=== PATIENT | female | born 1940 | race Caucasian/White ===

== ENCOUNTER 2018-06-08 18:09 | Inpatient (IN) | payer OTHER, MEDICARE ==
[~2018-06-08] VITALS: Ht 162.6 cm; Wt 96.4 kg
[~2018-06-08 18:09] MED LIST: ACETAMINOPHEN/H1 TA6 PO; COZAAR100 MG PO; FER300 PO; GABAPENTIN100 M2 PO; GLU10XL PO; LEVOTHYROXIN0.125 M2 PO; NADOLOL40 MG PO; NEOUD TOP; NEURONTIN400 MG PO; PRA20 PO; PRAVACHOL20 MG PO; THERAGRAN-M1 TA4 PO; TRAMADOL HCL50 MG PO; VITC PO
--- NOTE | 2018-06-08 18:46 | NUR ---
BROUGHT IN BY [facility],FOR GENERALIZED WEAKNESS,SKIN RASH TO MOST OF HER BODY,INCONTENENT OF STOOL AND URINE,CLEANED AND CLOTHES FULL OF STOOL PT STATED TO THROW IT, SEVERE CELLULITIS TO BILATERAL LOWER LEGS SINCE ONE YEAR PER WHO CHANGE HER DRESSINGS EVERY 2 DAYS,DRESSINGS REMOVED , STATED PUTS SOME LOTION TO HER OOZING CELLUILITIS, ALSO STATED HAS BEEN ON CHAIR FOR THE LAST 4 DAYS, HAS OPEN SORES TO BUTTOCKS ,AROUND ANAL AREA, SEEN BY DR CHAVARRIA TO CLEAN LEGS AND LEAVE OPEN TO AIR DRYING
--- NOTE | 2018-06-08 19:14 | NUR ---
RECIEVED REPORT FROM ARMANDO FRYE FOR CONTINUED CARE OF PATIENT.
--- NOTE | 2018-06-08 19:30 | NUR ---
SPOKE WITH PATIENT ABOUT HOW LONG SHE HAS BEEN IMMOBILE. PATIENT STATES SHE SAT IN HER CHAIR AND WAS UNABLE TO MOVE FOR 4 DAYS. IS THE PRIMARY CAREGIVER AT HOME WITH NO ASSISTANCE. PATIENT COULDN'T REMEMBER LAST TIME SHE WENT TO HER MD BUT STATES THEY NEVER LOOK AT HER FEET. PATIENT IS DIABETIC. PATIENT HAS RAISED RASH ALL OVER BODY- FROM NECK, CHEST AND ABDOMEN. PATIENT IS UNSURE OF ANY NEW MEDICATION OR FOOD SHE HAS TRIED THAT COULD POSSIBLY CONTRIBUTE TO AN ALLERGIC REACTION. PATIENT DENIES SOB. PATIENT IS AAO BUT APPEARS TO HAVE MILD CONFUSION AT TIMES WHEN ASKED DIRECT QUESTIONS. PATIENT WAS COVERED IN STOOL AND URINE UPON ARRIVAL AND IS NOW CLEAN AND DRY. WILL CONTINUE TO MONITOR.
[2018-06-08 19:51] LABS: PLATELET COUNT 223 x10^3mcL (130-400)
[2018-06-08 19:56] LABS: ALKALINE PHOSPHATASE 100 U/L (46-116); ALT/SGPT 20 U/L (14-59); AST/SGOT 33 U/L (15-37); BILIRUBIN TOTAL 0.5 mg/dL (0.20-1.00); CALCIUM 9.2 mg/dL (8.5-10.1); CARBON DIOXIDE 11.3 mmol/L (21-32); CHLORIDE SERUM 94 mmol/L (98-107); GLUCOSE SERUM 289 mg/dL (74-106); SODIUM SERUM 127 mmol/L (136-145)
[2018-06-08 19:58] LABS: RED CELL DISTRIBUTION WIDTH 14.7 % (11.5-14.5)
[2018-06-08 20:01] LABS: ALBUMIN 2.7 g/dL (3.4-5.0)
--- NOTE | 2018-06-08 20:01 | NUR ---
ATTEMPTED BY 3 PEOPLE TO START IVS ON PATIENT. UNSUCCESSFUL. MD AWARE OF STATUS. WITNESSED VERBAL CONSENT TO START CENTRAL LINE DONE BY DR. CHAVARRIA. PATIENT TRANSFERED TO TRAUMA 1 ROOM FOR FURTHER CARE.
[2018-06-08 20:04] LABS: CREATININE SERUM 4.1 mg/dL (0.6-1.0); POTASSIUM SERUM 5.6 mmol/L (3.5-5.1)
[2018-06-08 20:19] LABS: BAND NEUTROPHIL 9 % (0-10); BASOPHIL 0 % (0-2); MONOCYTE 12 % (0-7); SEGMENTED NEUTROPHILS 66 % (37-75)
[2018-06-08 20:20] LABS: rbc morphology (normal/abnorm) NORMAL (NORMAL)
--- NOTE | 2018-06-08 20:45 | NUR ---
PROVIDED WOUND CULTURE TO LAB.
--- NOTE | 2018-06-08 20:48 | NUR ---
PT AXO X4. PT IS ABLE TO RECALL ALL EVENTS THAT HAPPENED THE PAST FEW DAYS. PT DOES NOT REMEMBER SOME MEDICAL PROBLEMS OR MEDS SHE TAKES. PT STATES PAIN IN L ANKLE WELL TO HER BOTTOM. PT MADE AWARE WE CAN GIVE HER MEDICATION SOON WE GET THE CENTRAL LINE IN.
--- NOTE | 2018-06-08 20:48 | NUR ---
UNABLE TO START IV PER OTHER NURSE. MD CHAVARRIA GOING TO ATTEMPT CENTRAL LINE. PT MOVED TO BED 1 FOR HIGHER LEVEL OF CARE
--- NOTE | 2018-06-08 21:00 | NUR ---
ARMANDO RAMOS STATES THAT PT STATED SHE IS ALLERGIC TO TAPE
--- NOTE | 2018-06-08 21:02 | NUR ---
VERBAL CONSENT BY PT GIVEN TO MD CHAVARRIA AND RACHEL ROBERTS. PT AND AWARE. PT WAITING IN CAR TO "WARM UP" UNTIL PROCEDURE FINISHED
--- NOTE | 2018-06-08 21:03 | NUR ---
MD CHAVARRIA AT BEDSIDE FOR CENTRAL LINE PROCEDURE. PUPPET MAKER KIAT AT BEDSIDE, EMT JOLIE AT BEDSIDE, WELL ME.
--- NOTE | 2018-06-08 21:20 | NUR ---
X RAY AT BEDSIDE
--- NOTE | 2018-06-08 21:35 | NUR ---
MD FINISHED CENTRAL LINE INSERTION. PT TOLERATED PROCEDURE WELL.
--- NOTE | 2018-06-08 22:00 | NUR ---
MD CHAVARRIA MADE AWARE OF PT NEW BP. AWAITING NEW ORDERS AT THIS TIME. MD CHAVARRIA STATES WAIT FOR MORE OF BOLUS FLUIDS TO INFUSE AND WE WILL REASSESS
--- NOTE | 2018-06-08 22:30 | NUR ---
UNABLE TO FIND WOUND CAMERA TO TAKE PICUTRES OF MANY WOUNDS PT HAS SKIN BREAKDOWN TO BL LE THAT IS EXTREMELY RED AND PUSSING. THERE IS RED CRUSTED AROUND EDGES OF FEET AND WOUNDS. SKIN IS BROKEN DOWN AND L HEEL IS BLEEDING. PT ALSO HAS RASH TO ENTIRE BODY FROM JUNAID NECK DOWN. IT IS WORSE ON THE NECK AND CHEST AND BACK. THE RASH IS RED, AND SOME BUMPS SPORADICALLY ALL OVER. PT HAS PRESSURE ULCER TO COCCYX. PT ALSO HAS RED RASH/ BREAKDOWN TO CREASES OF FAT IN STOMACH AND INBETWEEN LEGS NEAR HER VAGINA WELL REDNESS TO THE LABIAS. WOUNDS ARE OPEN TO AIR ON LEGS PER MD ORDERS.
--- NOTE | 2018-06-08 22:41 | NUR ---
CALLED PHARMACY TO HAVE LEVO DRIP VERIFIED PER EMAR SO I CAN GET IT FROM THE [facility]
--- NOTE | 2018-06-08 22:56 | NUR ---
STARTED LEVO DRIP AT 2256 AT 2MCG/MIN WILL TITRATE DRIP Q5MIN BY 2 MCG/MIN TO MAINTAIN MAP > 65. MAX AT 30MCG/MIN
--- NOTE | 2018-06-08 23:11 | NUR ---
PT CURRENT BP IS 78/37 ON R ARM WITH LARGE CUFF. PT BP IF TAKEN ON L ARM WITH LARGE CUFF IS 146/127. MADE AWARE OF THIS. PT HAS HX OF R PARTIAL BREAST REMOVAL. MD CHAVARRIA STATES TO CONTINUE THE LEVO DRIP AT 2MCG/MIN FOR THE NEXT 30 MIN WHILE BOLUSES ARE INFUSING TO ENSURE THAT THIS ISACCURATE. MD CHAVARRIA STATES "SINCE SHE IS IN RENAL FAILURE WE WANT TO WATCH HER AND BUY HER TIME". LIDAR SCIENTIST MADDY MADE AWARE OF THIS. WILL CONTINUE TO MONITOR PRESSURE ON BOTH ARMS. WILL KEEP MD CHAVARRIA UPDATED ABOUT PT STATUS. PT STILL AXO X4 PT STATING SHE IS COLD. BLANKETS PROVIDED FOR WARMTH.
--- NOTE | 2018-06-08 23:19 | NUR ---
MD CHAVARRIA MADE AWARE OF CURRENT BP ON L SIDE WITH MAP OF 101 AND STATES TO CONTINUE LEVO UNTIL L FINISHES AND 10 MINUTES AFTER THAT LET HIM KNOW WHAT THE BP IS. LEVO IS STILL INFUSING AT 2MCG/MIN PER ORDERED
--- NOTE | 2018-06-08 23:40 | NUR ---
MD CHAVARRIA MADE AWARE OF PT NEW BP 74/43 MD CHAVARRIA STATES TO TITRATE DRIP NOW FOR MAP ABOVE 65 AND SYSTOLIC ABOVE 90 THIS PRESSURE IS TAKEN ON HER L ARM
--- NOTE | 2018-06-08 23:55 | NUR ---
LEVO TITRATED TO 4MCG/MIN
[2018-06-09] VITALS (7 sets, daily range): BP systolic 82–140; BP diastolic 48–82
--- NOTE | 2018-06-09 00:07 | NUR ---
LEVO TITRATED TO 6MCG/MIN
--- NOTE | 2018-06-09 00:15 | NUR ---
MD CHAVARRIA WANTS SYSTOLIC PRESSURE ABOVE 90
--- NOTE | 2018-06-09 00:26 | NUR ---
REPORT GIVEN TO YESENIA ROBERTS
[2018-06-09 00:37] LABS: microscopic required? YES
[2018-06-09 00:38] LABS: urine erythrocyte 3+ (NEGATIVE)
--- NOTE | 2018-06-09 00:40 | NUR ---
PT ARRIVED TO ICU BED 5 ACCOMPANIED BY BETTY, RN, EMT. TRANSFERRED TO ICU BED 5 ATTACHED TO FULL KINDERGARTEN CLASSROOM TEACHER AND PULSE OXIMETRY. PICTURES TAKEN FOR NOTED WOUNDS. RECEIVED PT AOX4 ABLE TO RESPOND TO COMMANDS, MAKE NEEDS KNOWN. GCS=15, PUPILS 3MM BRISK RESPONSE TO LIGHT B/L. NO REPORTED HUANG, SPEECH CLEAR, NO FACIAL DROOP.RIJ TLC, CDI, PORTS PATENT AND INFUSING. TRACHEA MIDLINE, NO DRAINAGE TO EENT. PT HAS NOTED NOTED SWELLING TO EARS, GENERALIZED RASH TO FACE AND TRUNK OF NECK.LUNG SOUNDS CLEAR TO BUL, DIMINISHED BASES. CHEST RISE/FALL SYMMETRIC, E/U BREATHING NOTED. NO ACUTE RESP DISTRESS, DENIES SOB. NO COUGH NOTED.S1/S2 SOUNDS HEARD, CHEST WALL STABLE, NO S/S OR REPORT OF CHEST PAIN. PT ON FULL KINDERGARTEN CLASSROOM TEACHER, NSR NOTED, HR 93.SKIN COLOR PALE TO BUE, REDDENNED COLOR TO BLE. CAP REFILL <3 SEC X4, PULSES WEAK X4 EXTREMITIES BUT PALPABLE. NO EDEMA. NS INFUSING @ 200 CC/HR, LEVOPHED GTT INFUSING @ 6MCG/MIN FROM ER.GENERALIZED WEAKNESS, NO CONTRACTURES/DEFORMITIES, PT ON TURN SCHED Q2H. NO JOINT SWELLING/TENDERNESS.HYPOACTIVE BOWEL SOUNDS X4 QUADRANTS, ABD SOFT/ROUND. PT REPORTS BM YESTERDAY. NO BM AT THIS TIME.NO LABIAL EDEMA/DISCHARGE NOTED. PT REPORTS BEING ABLE TO VOID, INCONTINENT. SKIN COOL TO TOUCH, GENERALIZED BODY RASH NOTED TO FACE, EARS, CHEST, EXTREMITIES. BLE CELLULITIS NOTED, RED IN COLOR, DRAINAGE NOTED. PERIANAL AND BUTTOCKS RASH NOTED, Z-GUARD APPLIED, OPTIFOAM PLACED FOR PROTECTION.PT CALM/COOPERATIVE WITH CARE. NO S/S OF N/V AT THIS TIME.
--- NOTE | 2018-06-09 00:41 | NUR ---
LEVOPHED TITRATED TO 4 MCG/MIN, NIBP 140/82 (99).
--- NOTE | 2018-06-09 01:00 | NUR ---
LEVOPHED TITRATED TO 2 MCG/MIN. NIBP 161/66 (101).
--- NOTE | 2018-06-09 01:04 | NUR ---
PT TRANSFERRED TO ICU AND HANDOFF GIVEN TO YESENIA RN. NO DISTRESS UPON TRANSFER. PT HAS E/U CHEST RISE. LEVO DRIP, O2 AND MONITORS IN PLACE. CARE TAKEN OVER BY MACHINE SETTER AND REPAIRER. PT GLASSES SENT WITH PT WELL EXTRA LEVO BAGS THAT PHARMACY HAD BROUGHT
--- NOTE | 2018-06-09 01:15 | NUR ---
LEVOPHED TITRATED OFF AT THSI TIME, NIBP 146/75 (99)
--- NOTE | 2018-06-09 01:17 | NUR ---
DR. TREJO AT BEDSIDE FOR ASSESSMENT, SPEAKING WITH PT WITH POC AND OBTAINING INFORMATION.
[2018-06-09 01:58] LABS: MAGNESIUM 2.3 mg/dL (1.8-2.4); PHOSPHOROUS 8.2 mg/dL (2.5-4.9)
[2018-06-09 02:00] LABS: T3 TOTAL 0.65 ng/mL
[2018-06-09 02:23] LABS: FREE T4 1.1 ng/dL (0.76-1.46); FREE THYROXINE INDEX 2.2 ug/dL (1.4-4.5); T4(THYROXINE) 6.6 ug/dL (4.7-13.3)
--- NOTE | 2018-06-09 02:45 | NUR ---
NASAL CANNULA TITRATED TO 2L, PT SATURATING @ 99%, DENIES SOB, NO ACUTE RESP DISTRESS, CHEST RISE/FALL SYMMETRIC, E/U BREATHING.
--- NOTE | 2018-06-09 03:00 | NUR ---
LEVOPHED TITRATED BACK ON @ 2 MCG/MIN, NIBP 82/51 (62).
--- NOTE | 2018-06-09 03:15 | NUR ---
LEVOPHED TITRATED TO 4 MCG/MIN, NIBP 80/44 (56).
--- NOTE | 2018-06-09 04:15 | NUR ---
LEVOPHED TITRATED TO 5 MCG/MIN, NIBP 84/52 (62).
--- NOTE | 2018-06-09 04:30 | NUR ---
LEVOPHED TITRATED TO 6 MCG/MIN. NIBP 82/52 (62).
--- NOTE | 2018-06-09 05:00 | NUR ---
LEVOPHED TITRATED TO 4 MCG/MIN. NIBP 93/55 (71).
--- NOTE | 2018-06-09 05:15 | NUR ---
LEVOPHED TITRATED TO 2 MCG/MIN. NIBP 108/57 (76).
--- NOTE | 2018-06-09 05:19 | NUR ---
PT SLEEPING BUT EASILY AROUSABLE, NO ACUTE DISTRESS, DENIES SOB, ON 2L NC, PT ON FULL METAL BALER AND PULSE OXIMETRY. RIJ, TLC, CDI, PORTS PATENT AND INFUSING NS @ 200 ML/HR AND LEVOHED GTT @ 2 MCG/MIN. HOB ELEVATED 30 DEGREES, CALL LIGHT WITHIN REACH, BED AT LOWEST SETTING. PT'S SHEETS, GOWN, LINEN AND CHUCKS CHANGED, OPTIFOAM PLACED TO SACRUM FOR PROTECTION.
[2018-06-09 05:27] LABS: BASOPHIL % 0.1 % (0-2); PLATELET COUNT 215 x10^3mcL (130-400)
[2018-06-09 05:32] LABS: CALCIUM 7.8 mg/dL (8.5-10.1); CARBON DIOXIDE 11.1 mmol/L (21-32); CHLORIDE SERUM 101 mmol/L (98-107); CREATININE SERUM 3.1 mg/dL (0.6-1.0); GLUCOSE SERUM 298 mg/dL (74-106); PHOSPHOROUS 7.3 mg/dL (2.5-4.9); POTASSIUM SERUM 5.4 mmol/L (3.5-5.1); SODIUM SERUM 131 mmol/L (136-145)
[2018-06-09 05:34] LABS: RED CELL DISTRIBUTION WIDTH 14.7 % (11.5-14.5)
--- NOTE | 2018-06-09 05:50 | NUR ---
DR. GORE AT BEDSIDE FOR ASSESSMENT, UPDATES PROVIDED. PER DR. GORE, INITIATE RUSSELL CATHETER AND D/C NORMAL SALINE, START 1/2 NS @ 200 CC/HR WITH 2 AMPS OF BICARB. WILL INPUT ORDERS. PER DR. GORE PT MIGHT NEED DIALYSIS DUE TO BUN/CREATININE LEVELS.
--- NOTE | 2018-06-09 06:05 | NUR ---
RUSSELL CATHETER INITIATED AT THIS TIME ACCOMPANIED BY ARMANDO COLE USING STERILE TECHNIQUE. PT TOLERATED WELL AND COOPERATIVE.
--- NOTE | 2018-06-09 06:15 | NUR ---
LEVOPHED TITRATED OFF AT THIS TIME. NIBP 115/71 (85).
--- NOTE | 2018-06-09 06:16 | NUR ---
DR. PORRAS AT BEDSIDE FOR ASSESSMENT, UPDATES PROVIDED AND QUESTIONS ANSWERED.
[2018-06-09 06:23] LABS: ERYTHROCYTE SED RATE 62 mm/hr (0-30)
--- NOTE | 2018-06-09 07:10 | NUR ---
REPORT RECEIVED FROM YESENIA ROBERTS. ALL QUESTIONS ADDRESSED. PT LYING IN SEMIFOWLERS POSITION RESTING WITH EYES CLOSED. EASILY AWAKENS TO VERBAL STIMULI, FOLLOWS COMMANDS. 2L NC IN PLACE CHEST EXPANSION SYMM, BREATHIGN E/U AND REGULAR EFFORT. NO N/V/D. NO CP OR PRESSURE. FISH BIN TENDER IN PLACE. 1 DEGREE AVB ON MONITOR. RIJ TLC CVC SITE WNL AND DRESSING CDI. BLE WARM, REDDENED/FLUSHED AND NOTED TO HAVE NUMEROUS WOUNDS. BLANKETS ELEVATED OFF LOWER EXTREMITIES. NO S/SX OF DISTRESS. THREE SIDERAILS UP AND CALL LIGHT WITHIN REACH.
--- NOTE | 2018-06-09 07:10 | NUR ---
GAVE REPORT TO ARMANDO YADAV. UPDATES PROVIDED, QUESTIONS ANSWERD.
--- NOTE | 2018-06-09 07:49 | NUR ---
PT PLACED ON ISOGEL MATTRESS.
--- NOTE | 2018-06-09 08:00 | NUR ---
DR. MCALLISTER AT BEDSIDE TO ASSESS PT. UPDATED ON PT'S STATUS AND CONDITION. CVP LINE SET UP REQUESTED. INITIAL CVP 17, WILL CONTINUE TO MONITOR.
--- NOTE | 2018-06-09 11:30 | NUR ---
BP 80/50 (58). LEVOPHED INITIATED @ 2 MCG/MIN. WILL CONTINUE TO MONITOR
--- NOTE | 2018-06-09 11:43 | NUR ---
BP 106/59 (69) LEVOPHED TITRATED FROM 2 MCG/MIN TO 1 MCG/MIN
--- NOTE | 2018-06-09 11:53 | NUR ---
SPOKE WITH MR. LUIS, PT'S , UPDATED ON PATIENTS MORNING. STATES HE WILL BE BY SHORTLY TO SEE THE PATIENT. STATES PT HAS NOT BEGAN ANY NEW MEDICATIONS BUT HAS BEEN ITCHY FOR A FEW WEEKS. STATES HE JUST NOTICED THE RASH IN EMERGENCY DEPARTMENT.
--- NOTE | 2018-06-09 12:01 | NUR ---
ON ASSESSMENT INSPIRATORY WHEEZES NOTED TO BUL. DR. PORRAS PAGED AND MADE AWARE. ALSO INFORMED OF PT HAVING INTERMITTENT ITCHING. STATES SHE WILL ADD BENADRYL.
--- NOTE | 2018-06-09 12:16 | NUR ---
WOUND CARE EVALUATION NOTE: REASON FOR EVALUATION: MULTIPLE WOUNDS SKIN ASSESSMENT DONE WITH PRIMARY RN AT 11:30 AM WITH THIS 77 Y/O FEMALE PT ADMITTED FROM HOME TO [facility] WITH INITIAL DX OF GENERNAL WEAKNESS. PAST MEDICAL HX INCLUDES CHRONIC BLE CELLULITIS, DM, HTN, RIGHT BREAST CA S/P LUMPECTOMY WITH RADITION PT. ADMITTED WITH PRESSURE ULCERS TO HEELS AND SACRALCOCCYX, SKIN GENERLIZES RASHES FROM CHIN DOWN POSSIBLE SSSS. ALL ABOVE INFORMATION OBTAINED FROM ADMISSION H&P. PT IS AWAKE, ALERT X4. SKIN IS WARM AND MOIST, BLE WEEPING SKIN, DORSAL PEDAL PULSES DIFFICULT TO PALPATE DUE TO +3 EDEMA, FUNGALNAILS X [address] TOES[address] F/C IN PLACE, SHARMIN COLOR OF MODERATE AMOUNT URINE OUTPUT. PLAN OF CARE DISCUSSED WITH PRIMARY RN AND PT. AND PT VERBALIZES UNDERSTANDING. COMORBIDITIES RELATED TO SKIN BREAKS: INFECTION, DM, LOW ALBUMIN LEVEL AND HOB ELEVATED THE MAJORY OF TIMES DUE TO MEDICAL REASONS. INTEGUMENTARY: -INTERTRIGO TO BREAST FOLDS AND LOWER ABDOMENAL FOLDS -INCOTINENT ASSOCIATE DERMATITIS (IAD) TO: B/L GROINS EXTENDED TO R/L MEDIAL THIGHS, SWATHI ANAL AMD PERINUEM, SKIN REDNESS WITH MULTIPLE PIN POINTS SKIN EROSIONS -IAD TO RIGHT AND LEFT INNER BUTTOCKS MULTIPLE SMALL PARTIAL THICKNESS SKIN EROSIONS WITH LARGEST SIZE 0.5X0.5X0.1 CM ON RIGHT INNER BUTTOCK, WOUND BED IS PINK, CLEAN AND MOIST. NO ODOR. -PRESSURE ULCER STAGE 1 TO SACRALCOCCYX 3X2CM -PRESSURE INJURY UNSTAGEABLE TO LEFT HEEL 4X3CM, DEPTH IS UTD, WITH 100% YELLOW AND BROWN SLOUGH ON WOUND BED. SMALL AMOUNT OF PURULENT DRAINAGE WITH MILD ODOR OOZING OUT OF WOUND EDGE, SURROUNDING REDNESS INDICATED FURTHER DAMAGE -PRESSURE INJURY UNSTAGEABLE TO RIGHT HEEL 4X4CM, DEPTH IS UTD, WITH 100% BROWN AND DARK PURPLE ON WOUND BED. SMALL AMOUNT OF PURULENT DRAINAGE WITH MILD ODOR NOTICE, SURROUNDING SKIN DENUDED WITH REDNESS INDICATED FURTHER DAMAGE -VENOUS STASTIC ULCER ENTIRE LEFT LOWER LEG FROM KNEE DOWN WITH MULTIPLE INFECTED OPEN WOUND, WOUND BED ARE RED, MODERATE AMOUNT OF PURULENT DRAINAGE, MILD ODOR. -VENOUS STASTIC ULCER ENTIRE RIGTH LOWER LEG FROM KNEE DOWN WITH MULTIPLE INFECTED OPEN WOUND, WOUND BED ARE RED WITH MODERATE AMOUNT OF PURULENT DRAINAGE,MILD ODOR. RECOMMENDATIONS: -ULTRA SOUND PENDING -KEEP SKIN DRY AND CLEAN AT ALL TIMES -APPLY INTER DRY CLOTH TO BREASTS FOLDS AND LOAWER ABDOMENAL FOLDS INTERTRIGO QD AND PRN IF SOILING -CLEANSE ALL IAD AREAS INCLUDES GROINS/ MEDIAL THIGHS, PERINENM WITH SOAP AND WATER, PAT DRY AND APPLY Z-GUARD, BID AND PRN IF SOILING -CLEANSE R/ L HEELS PRESSURE INJURIES WITH WOUND CARE SOLUTION, PAT DRY, APPLY ADAPTIC DRESSING, WRAP WITH KERLIX ROLLS CHANGE Q M-W-F AND PRN IF SOILING. -CLEANSE R/ L LOWER LEGS STASTIC ULCERS WITH WOUND CARE SOLUTION, PAT DRY, APPLY ADAPTIC DRESSING, WRAP WITH KERLIX ROLLS CHANGE Q M-W-F AND PRN IF SOILING. -APPLY OPTIFORM TO SACRALCOCCYX AND CHANGE Q3D AND PRN IF SOILING -OFFLOAD BILATERAL HEELS BY PLACING PILLOWS UNDER CALVES UNLESS OTHERWISE CONTRAINDICATED -PRESSURE REDISTUBUTION SURFACE THERAPY -TURN AND REPOSITION Q2H, OFFLOAD SACRALCOCCYX BY TURNING RIGHT AND LEFT -MONITOR SKIN CONDITION EACH TIME PT IS REPOSITIONS -CONTINUE TO FOLLOW RD RECOMMENDATIONS ALL ABOVE RECOMMENDATIONS DISCUSSED WITH PRIMARY RN WILL FOLLOW UP PT Q7-10 DAYS. PLEASE CONTACT WOUND CARE NURSE FOR ANY QUESTION AND CHANGE OF WOUND CONDITION.
[2018-06-09 12:19] LABS: CHLORIDE SERUM 103 mmol/L (98-107); CREATININE SERUM 2.8 mg/dL (0.6-1.0); GLUCOSE SERUM 273 mg/dL (74-106); SODIUM SERUM 133 mmol/L (136-145)
--- NOTE | 2018-06-09 13:07 | NUR ---
BP 50/25 (35) LEVOPHED TITRATED FROM 1 MCG/MIN TO 4 MCG/MIN
--- NOTE | 2018-06-09 13:29 | NUR ---
BP 80/45 (58). LEVOPHED TITRATED FROM 4 MCG/MIN TO 6 MCG/MIN
--- NOTE | 2018-06-09 13:30 | NUR ---
SPOT CHECK BS 191. PT HR @ 61 WITH SLIGHT RHYTHM CHANGE NOTED. STAT EKG ORDERED. PT AWAKENS TO VERBAL STIMULI AND FOLLOWS COMMANDS.
--- NOTE | 2018-06-09 13:47 | NUR ---
DR. JULIAN MADE AWARE OF LOW TRENDING HR.
--- NOTE | 2018-06-09 13:52 | NUR ---
DR. JULIAN AT BEDSIDE TO ASSESS PT. BENADRYL TO BE ADDED FOR ADVERSE REACTION, BRADYCARDIA, ON PATIENT'S EMAR. EKG NOTED WITHOUT SIGNIFICANT CHANGES. WILL CONTINUE TO MONITOR HR.
--- NOTE | 2018-06-09 14:00 | NUR ---
BP 81/44 (56). LEVOPHED TITRATED FROM 6 MCG/MIN TO 8 MCG/MIN
--- NOTE | 2018-06-09 14:41 | NUR ---
PT'S AT BEDSIDE. REQUESTING TO SPEAK WITH DOCTOR. DR. JULIAN PAGED AT THIS TIME TO SPEAK WITH . INFORMED OF ADVERSE REACTIONS TO BENADRYL. VERBALIZES UNDERSTANDING.
--- NOTE | 2018-06-09 15:00 | NUR ---
DR. JULIAN AT BEDSIDE UPDATING PT'S ON STATUS AND CONDITION. ALL QUESTIONS ADDRESSED.
--- NOTE | 2018-06-09 15:32 | NUR ---
BP 119/45 (69). LEVOPHED TITRATED FROM 8 MCG/MIN TO 6 MCG/MIN
--- NOTE | 2018-06-09 15:54 | NUR ---
INTERDRY PLACED BETWEEN PT'S INGUINAL FOLDS TO ASSIST WITH MOISTURE CONTROL. RUSSELL CARE PROVIDED AT THIS TIME.
--- NOTE | 2018-06-09 17:12 | NUR ---
DR. CHANEY AND DR. COLEMAN AT BEDSIDE TO ASSESS PT. SPOKE WITH PT'S AND UPDATED ON BLE STATUS. ALL QUESTIONS ADDRESSED.
--- NOTE | 2018-06-09 17:52 | NUR ---
BP 128/71 (98). LEVOPHED TITRATED FROM 6 MCG/MIN TO 4 MCG/MIN
--- NOTE | 2018-06-09 17:55 | NUR ---
BP 128/71 (98). LEVOPHED TITRATED FROM 8 MCG/MIN TO 6 MCG/MIN
--- NOTE | 2018-06-09 18:34 | NUR ---
BP 103/51 (72). LEVOPHED TITRATED FROM 4 MCG/MIN TO 2 MCG/MIN
--- NOTE | 2018-06-09 18:50 | NUR ---
89/48 (63) LEVOPHED TITRATED FROM 2 MCG/MIN TO 3 MCG/MIN R/T PT SENSITIVITY.
--- NOTE | 2018-06-09 19:08 | NUR ---
REPORT GIVEN TO BENITO ROBERTS. ALL QUESTIONS ADDRESSED. WILL ENDORSE CARE
--- NOTE | 2018-06-09 19:15 | NUR ---
RECEIVED PATIENT IN BED, ALERT AND ORIENTED, NO UNTOWARD COMPLAINTS PRESENTED, DENIES ITCHINESS, RASHES SEEN ON THE FACIAL AREA, UPPER EXTREMITES, FRONT AND BACK, NO RESPIRATORY DIFFICULTY,DENIES DIFFICULTY SWALLOWING, REMAINED ON LEVOPHED AT 3 MCG, BPS IN THE HIGH 80'S, O2 SAT 99% AT 2L/M, CENTRAL LINE ON THE RIJ. PATENT AND INTACT, RUSSELL CATH PATENT, URINE OUTPUT ADEQUATE, REPOSITIONED FOR COMFORT, SPOUSE AT BEDSIDE, UPDATED WITH CURRENT STATUS, VOICED CONCERN THAT HE WOULD LIKE TO BE ABLE TO SPEAK WITH THE SPECIALIST.
--- NOTE | 2018-06-09 20:00 | NUR ---
LEVOPHED TITRATED TO 4MCG/MIN BP 83/31 WITH MAP 53.
--- NOTE | 2018-06-09 20:40 | NUR ---
DR. PALMER CAME TO SEE AND ASSESS PATIENT. EXPLAINED THAT PATIENT ACQUIRED TOXIC SHOCK SYNDROME.
--- NOTE | 2018-06-09 23:00 | NUR ---
LEVOPHED TITRATED TO 3 MCG/MIN. NIBP 108/51 (73).
[2018-06-10] VITALS (7 sets, daily range): BP systolic 92–107; BP diastolic 43–57
--- NOTE | 2018-06-10 01:09 | NUR ---
PATIENT IS ASLEEP, NO SIGNS OF DISTRESS NOTED, STILL ON LEVOPHED DRIP AT 3 MCG/MIN.
--- NOTE | 2018-06-10 02:28 | NUR ---
LEVOPHED TITRATED TO 2 MCG/MIN, MAP 73
--- NOTE | 2018-06-10 04:03 | NUR ---
LEVOPHED DRIP IS DOWN TO 1MCG/M, BP SYSTOLIC 95 WITH A MAP OF66. REMAINED ALERT AND ORIENTED, NO UNTOWARD COMPLAINTS.
[2018-06-10 05:04] LABS: PLATELET COUNT 186 x10^3mcL (130-400); RED CELL DISTRIBUTION WIDTH 13.9 % (11.5-14.5)
[2018-06-10 05:06] LABS: BASOPHIL % 2.5 % (0-2)
[2018-06-10 05:09] LABS: CALCIUM 7.5 mg/dL (8.5-10.1); CARBON DIOXIDE 21.6 mmol/L (21-32); CHLORIDE SERUM 104 mmol/L (98-107); GLUCOSE SERUM 164 mg/dL (74-106); MAGNESIUM 1.7 mg/dL (1.8-2.4); PHOSPHOROUS 4.6 mg/dL (2.5-4.9); POTASSIUM SERUM 3.8 mmol/L (3.5-5.1); SODIUM SERUM 139 mmol/L (136-145)
--- NOTE | 2018-06-10 07:23 | NUR ---
BEDSISDE REPORT GIVEN TO DAY NURSE, ALL COMCERNS ADDRESSED,
--- NOTE | 2018-06-10 09:45 | NUR ---
DR. PALMA, RESIDENTS AND PARTRIDGE FARMER AT BEDSIDE FOR ROUNDING. UPDATES PROVIDED AND QUESTIONS ADDRESSED.
--- NOTE | 2018-06-10 10:23 | NUR ---
DR BARROW SAW PT AND TALKED TO DR. JULIAN. PT'S IVF DECREASED FROM 200ML/HR TO 100ML. CXR AND ECHO ARE ORDERED.
--- NOTE | 2018-06-10 10:49 | NUR ---
O2 SAT 88% WITH C/O SOB. 2L NC INCREASED TO 4L NC.
--- NOTE | 2018-06-10 12:25 | NUR ---
PT HAD BM X 2, LOOSE, DARK STOOL. PT'S BP IS DECREASED, BP MAP < 65, INCREASED LEVOPHED 4MCG/MIN.
--- NOTE | 2018-06-10 13:34 | NUR ---
1. Continue CCHO diet. 2.Recommend Chris BID to support wound healing. 3.Recommend MVI with Minerals, Vitamin C (100-200mg/day) to support wound healing.
--- NOTE | 2018-06-10 13:34 | NUR ---
Initial Nutrition Assessment- [id number] DAHLIA LUIS IA HR Dx: BLE Cellulitis with sepsis PMHx: DM, HTN, HLD, Right Breast Cancer s/p Lumpectomy with radiation PSHx: right lumpectomy, hysterectomy Labs: (06/10) BG 164H, BUN 88H, CREAT 2.0H, A1C 8.9H, MG 1.7L Meds: D50, Humulin, lactinex, Lasix, zofran Diet: CCHO PO Intake: 10% Ht:162.56 cm (64") Wt: 90.7 kg (199#) BMI: 34.3 kg/m2 (obesity) IBW: 120# (55 kg) %IBW: 165 UBW: unable to access at this time Age: 77/F Food Allergies: NKFA Skin: Rashes on upper extremities, trunk abdominal area and back Asif: 13 Edema: none GI: unable to recall last BM Trigger: Poor PO > 3 d Per H&P, Patient is a 77 year old female with PMH of DM, HTN, HLD, Right Breast Cancer s/p Lumpectomy with radiation was brought in by ambulance from home for generalized weakness. Patient reports bilateral leg pain for one year with drainage. Patient states she has not been eating or drinking like she normally does. FNS received consult for "cellulitis with sepsis" on 06/09/18. Per infection prevention specialist note, Pt has multiple pressure ulcers and open wounds. RDN visit(06/10): Pt was sleeping and no family member was at bedside. Per pt's RN, pt does not have any N/V/D at this time and has 'Poor' appetite. RN did mention that pt was complaining of a possible dental issue that might be a factor in poor PO. Discussed recommendation for including Chris BID for wound healing. Paged Dr. Abreu, waited for call back, sent message with recommendations using [employer]. Problem with: N: no V: no D: no C: no Problems with: Chewing/Swallowing: per RN pt might have difficulty chewing due to dental issue. Current appetite: poor Recent wt change: unable to access at this time Vitamin/Supplement use: unable to access at this time Special diet at home: unable to access at this time Physical activity: unable to access at this time Education: pt was sleeping and no family member was at the bedside. Therefore Diabetes diet education will be attempted in a follow up visit. Estimated Nutritional Needs Based on ideal body weight 55 kg Energy: 5269-8809 kcal/d (30-35 kcal/kg- increased d/t wounds) Protein: 55-66 g/d (1-1.2 g/kg)- wounds and preservation of lean body mass Fluid: 7623-7427 ml/d (1 ml/kcal-fluid balance) or per doctor Nutrition Diagnosis 1. Inadequate oral intake related to poor appetite as evidenced by documented PO < 25% 2. Increased nutrient needs related to increased metabolic demands as evidenced by multiple wounds and pressure injuries. Intervention 1. Continue CCHO diet. 2.Recommend Chris BID to support wound healing. 3.Recommend MVI with Minerals, Vitamin C (100-200mg/day) to support wound healing. Monitor/Evaluate Goal: PO intake at least 75% of estimated needs Monitor: PO intake, Labs, GI function F/U in 2-3 days as high risk 5/3-5/4
--- NOTE | 2018-06-10 16:11 | NUR ---
BP 117/65 (79). LEVOPHED TITRATED FROM 6 MCG/MIN TO 4 MCG/MIN
--- NOTE | 2018-06-10 17:55 | NUR ---
02 SAT 98%. PT BREATHING E/U AND REGULAR EFFORT. O2 TITRATED FROM 5 LPM NC TO 2 LPM NC
--- NOTE | 2018-06-10 19:15 | NUR ---
RECIEVED REPORT FROM ARMANDO LANG. RESUMED CARE OF PT. PT A&OX4 W/ SIGNS OF DROWSINEED. LUNG SOUNDS DIMB TRINA. N/C 5L W/ EENT FREE OF DISCHARGE AND RIJ SECURE & INTACT. PULSES MOD BUE &WEAK BLE. CAP REFILL > 3 SEC BLE AND < 3 SEC BUE. TRACE EDEMA BUE&BLE. 1 DEGREE AVB. SKIN W/ SCATTERED ERYTHEMA RASH TRUNK/BUE/BLE. R BUTTOCKS LESION EXTENDING TO PERINEAL AREA W/ OPTIFOAM IN PLACE. LEVO INFUSING @ 4MCG/MIN. 1/2 NS W/ HCO3 @ 100ML/HR. F/C SECURE AND INTACT. URINE YELLOW. HEEL PROTECTIONS BOOTS IN PLACE.
--- NOTE | 2018-06-10 19:33 | NUR ---
PT REPORT GIVEN TO COMING NURSE. QUESTIONS AND CONCERNS ADDRESSED. PT'S AT BEDSIDE. PT IS STILL ON LEVOPHED AT 5MCG/MIN TO MAINTAIN BP MAP > 65. PT HAD BM X 3, LOOSE DARK. PT BREATHING ON O2 5L VIA NC, O2 SAT 93%.
--- NOTE | 2018-06-10 19:53 | NUR ---
LEVO TITRATED FROM 4MCG TO 5MCG PER PT CONSISTENT MAP > 65. PT TOLERATED WELL WILL REASSESS.
--- NOTE | 2018-06-10 20:07 | NUR ---
PT SWITCHED PER RT TO OXYMIZER FROM 6LPM.
--- NOTE | 2018-06-10 20:14 | NUR ---
LEVO TITRATED FROM 6MCG TO 8MCG PER MAP > 65. WILL CONT TO MONITOR.
--- NOTE | 2018-06-10 22:29 | NUR ---
RT @ BEDSIDE FOR ABG.
--- NOTE | 2018-06-11 01:11 | NUR ---
DR PALMER @ BEDSIDE. NURSING UPDATES. NO NEW ORDERS @ THIS TIME.
--- NOTE | 2018-06-11 01:25 | NUR ---
TITRATED LEVO FROM 8MCG TO 6MCG PER PT BP WNL MAP > 65 FOR PAST HOUR. WILL CONT TO MONITOR.
[2018-06-11 03:06] VITALS: BP 119/73
--- NOTE | 2018-06-11 03:37 | NUR ---
PT RESTING CALMLY IN BED W/ NO ACUTE CHANGES. OXYMIZER WORKING WELL. WILL CONT TO MONITOR. BED IN LOWEST POSITION CLOSE TO NURSES STATION.
--- NOTE | 2018-06-11 04:38 | NUR ---
LINENS CHANGED, GOWN NEW, CLEAN PT. PT TOLERATED WELL. NO ACUTE CHANGES. PT STATED BEING VERY THANKYFUL FOR HOW HARD WE WE WORKING. PT RESTING CALMLY IN BED EDUCATED TO REST BEST COULD. WILL CONT TO MONITOR.
[2018-06-11 05:15] LABS: PLATELET COUNT 182 x10^3mcL (130-400)
--- NOTE | 2018-06-11 05:21 | NUR ---
TITRATED LEVO FROM 4MCG TO 6MCG PER PT MAP < 65 FOR 30 MINS. WILL CONT TO MONITOR.
[2018-06-11 05:27] LABS: CALCIUM 7.9 mg/dL (8.5-10.1); CHLORIDE SERUM 100 mmol/L (98-107); CREATININE SERUM 1.4 mg/dL (0.6-1.0); GLUCOSE SERUM 227 mg/dL (74-106); MAGNESIUM 1.6 mg/dL (1.8-2.4); PHOSPHOROUS 3.2 mg/dL (2.5-4.9); POTASSIUM SERUM 3.6 mmol/L (3.5-5.1); SODIUM SERUM 137 mmol/L (136-145)
[2018-06-11 05:30] LABS: RED CELL DISTRIBUTION WIDTH 14.6 % (11.5-14.5)
--- NOTE | 2018-06-11 05:40 | NUR ---
TITRATED LEVO FROM 6MCG TO 8MCG PER PT MAP < 65 FOR 30 MINS. WILL CONT TO MONITOR.
--- NOTE | 2018-06-11 05:57 | NUR ---
TITRATED LEVOPHED FROM 8 MCG/MIN TO 10 MCG/MIN FOR BP OF 76/49 (59).
--- NOTE | 2018-06-11 06:19 | NUR ---
TITRATED LEVO FROM 10MCG TO 12MCG PER PT MAP < 65 FOR 30 MINS. WILL CONT TO MONITOR.
--- NOTE | 2018-06-11 07:15 | NUR ---
REPORT GIVEN TO SAKINA ROBERTS. ALL CONCERNS ADDRESSED.
[2018-06-11 07:38] VITALS: BP 123/80
--- NOTE | 2018-06-11 08:00 | NUR ---
SHE RECIEVING BREATHING TX AT BEDSIDE, TOLERATING TX WELL.
--- NOTE | 2018-06-11 08:06 | NUR ---
BP 125/72, MAP 90. LEVOPHED TITRATED FROM 12 MCG/MIN TO 10 MCG/MIN. PRIMARY RN MIN MADE AWARE.
--- NOTE | 2018-06-11 08:20 | NUR ---
B/P 116/68 MAP 87 HR 101 LOWERED LEVOPHED FROM 10MCG/KG/MIN TO 8MCG/KG/MIN TO ACHIEVE MAP 65.
--- NOTE | 2018-06-11 08:32 | NUR ---
POOR ORAL INTAKE, PT WAS ONLY INTERESTED IN COFFEE FOR BREAKFAST.
--- NOTE | 2018-06-11 08:35 | NUR ---
B/P 104/53 MAP 70 HR 109 DECREASED LEVOPHED FROM 8MCG/KG TO 6MCG/KG/MIN TO ACHIEVE MAP 65.
--- NOTE | 2018-06-11 08:50 | NUR ---
DR COLEMAN PODIATRY AT BEDSIDE TO ASSESS PATIENT. UPDATES PROVIDED BY NURSING.
--- NOTE | 2018-06-11 09:01 | NUR ---
PATIENT'S BP 169/123, MAP 153. LEVOPHED TITRATED FROM 6 MCG/MIN TO 4 MCG/MIN. WILL CONTINUE TO MONITOR.
--- NOTE | 2018-06-11 09:08 | NUR ---
ESTEFANI MOLINA AT BEDSIDE IMPLEMENTED HI FLOW 35L AT 80%FIO2 TO ACHIEVE PO2SAT ABOVE 90%.
--- NOTE | 2018-06-11 09:45 | NUR ---
B/P84/48 MAP 60, HR 98 INCREASED LEVOPHED FROM 4MCG/KG/MIN TO 6MCG/KG/MIN TO ACHIEVE MAP 65.
--- NOTE | 2018-06-11 10:10 | NUR ---
PT ON CPAP TOLERATING WELL, LOWERED VERSED TO 1MG/HR AND FEANTANYL 1MCG/KG/MIN TO ACHIEVE RSS4.
--- NOTE | 2018-06-11 10:30 | NUR ---
[facility] TEACHER JEANIE AT BEDSIDE WITH STONECUTTER HAND CHANGING RIJ CVC DRESSING WITH PROPER TECHNIQUES.
[2018-06-11 11:14] VITALS: BP 95/53
--- NOTE | 2018-06-11 12:14 | NUR ---
B/P 96/51 MAP 64 HR 99 INCREASED LEVOPHED FROM 6MCH/KG/MIN TO 8MCG.KG/MIN TO ACHIEVE MAP 65.
--- NOTE | 2018-06-11 13:22 | NUR ---
BP 121/56 MAP 75 HR 114 LOWERED LEVOPED FROM 8MCG/KG/MIN TO 6MCG/KG/MIN TO ACHIEVE MAP 65.
--- NOTE | 2018-06-11 13:53 | NUR ---
PROVIDED PT'S STATUS UPDATES TO DR. AKINS. PER TO TURN OFF NS AT 100ML/HR AND START PT ON PO VASSOPRESSIN 5MG PO TID AND 20MG IVP LASIX.
--- NOTE | 2018-06-11 14:44 | NUR ---
PATIENT'S SON CHARITY TELEPHONED UNIT FOR PATIENT UPDATE. UPDATES PROVIDED BY NURSING. CONTACT NUMBER FOR CHARITY LUIS .
--- NOTE | 2018-06-11 15:08 | NUR ---
PT IS AGITTATED AND TEARFUL, NOTIFIED DR. LANDEROS RECIEVED ORDERS OF ATIVAN. AWAITING FOR ODER TO BE ENTER.
[2018-06-11 15:30] VITALS: BP 95/53
--- NOTE | 2018-06-11 15:30 | NUR ---
REPOSITIONED PT AND, PT HAD A BM, LOOSE. OPTIFOAM CHANGED, Z GUARD APPLIED TO PERNINEAL AREA.
--- NOTE | 2018-06-11 19:06 | NUR ---
CHANGED LINENS W/ RN MIN FOR PT LOOSE BM BROWN UNFORMED. CLEANED PT AND LINENS.
--- NOTE | 2018-06-11 19:10 | NUR ---
RECIEVED REPORT FROM RN MIN. RESUMED CARE OF PT. PT A&OX4. LUNG SOUNDS DIM TRINA W/ INSPIR/EXPIR SMALL WHEEZE. HI FLOW 80% 35LPM W/ EENT FREE OF DISCHARGE AND RIJ SECURE & INTACT. PULSES MOD BUE &WEAK BLE. CAP REFILL > 3 SEC BLE AND < 3 SEC BUE. TRACE EDEMA BUE&BLE. 1 DEGREE AVB. SKIN W/ SCATTERED ERYTHEMA RASH TRUNK/BUE/BLE. R BUTTOCKS LESION EXTENDING TO PERINEAL AREA W/ OPTIFOAM IN PLACE. LEVO INFUSING @ 6MCG/MIN. F/C SECURE AND INTACT. URINE YELLOW. HEEL PROTECTIONS BOOTS IN PLACE.
--- NOTE | 2018-06-11 20:00 | NUR ---
RT NOTIFIED PT AND RN KATHY OF FIO2 DECREASED FROM 85% TO 75%. PT TOLERATED WELL NO S/S OF SOB. O2 SAT 96%. WILL CONT TO MONITOR.
[2018-06-11 20:01] VITALS: BP 101/55
--- NOTE | 2018-06-11 21:24 | NUR ---
DR. PALMER AT BEDSIDE FOR UPDATES. ALL QUESTIONS AND CONCERNS ANSWERED.
--- NOTE | 2018-06-11 22:07 | NUR ---
PT W/ UNFORMED SMALL BM. OPTIFOAM CHANGED. PT CLEANED.
[2018-06-12] VITALS (7 sets, daily range): BP systolic 90–112; BP diastolic 42–58
--- NOTE | 2018-06-12 00:11 | NUR ---
RT NOTIFIED HI FLOW SET TO 25LPM @ FIO2 65% PER PT TOLERATED. O2 SAT 95%. NO S/S OF DISTRESS/SOB. PT DENIES SOB. WILL CONT TO MONITOR.
--- NOTE | 2018-06-12 01:00 | NUR ---
RT IRVIN NOTIFED PT HIFLOW @ 60% O2 AND 25LPM. PT O2 SAT 93%. PT TOLERATED WELL NO S/S OF DISTRESS/ PT DENIES SOB. WILL CONT TO MONITOR.
--- NOTE | 2018-06-12 02:09 | NUR ---
RT NOTIFIED HI FLOW @ 65% O2 AND 25LPM PER PT LOW O2SAT OF 89-90%. PT O2SAT NOW 93-94%. PT TOLERATED WELL. WILL CONT TO MONITOR.
--- NOTE | 2018-06-12 03:54 | NUR ---
RT BRYAN @ BEDSIDE FOR BREATHING TX.
--- NOTE | 2018-06-12 05:14 | NUR ---
CLEANED LINENS AND PT. BED BATH GIVEN SHOWER CAP USED. PT W/ NO BM. OPTIFOAM INTACT. PT TOLERATED WELL. BED IN LOWEST POSITION CALL JOHNS WITHIN REACH.
[2018-06-12 05:29] LABS: BASOPHIL % 0.3 % (0-2); PLATELET COUNT 169 x10^3mcL (130-400)
[2018-06-12 05:31] LABS: RED CELL DISTRIBUTION WIDTH 14.6 % (11.5-14.5)
[2018-06-12 05:40] LABS: CALCIUM 8.1 mg/dL (8.5-10.1); CHLORIDE SERUM 97 mmol/L (98-107); CREATININE SERUM 1.2 mg/dL (0.6-1.0); GLUCOSE SERUM 280 mg/dL (74-106); MAGNESIUM 1.9 mg/dL (1.8-2.4); PHOSPHOROUS 2.6 mg/dL (2.5-4.9); POTASSIUM SERUM 3.5 mmol/L (3.5-5.1); SODIUM SERUM 136 mmol/L (136-145)
--- NOTE | 2018-06-12 06:40 | NUR ---
DR JULIAN @ BEDSIDE. NURSING UPDATES. AWAITING NEW ORDERS.
--- NOTE | 2018-06-12 07:20 | NUR ---
REPORT GIVEN FROM ARMANDO CHAVEZ. ALL QUESTIONS ANSWERED.
--- NOTE | 2018-06-12 07:30 | NUR ---
PATIENT IS IN BED SLEEPING, BED IS TO THE LOWEST POSITION. PATIENT IS ON HIGH FLOW OXYGEN, 60%FIO2 AND 25 LPM. PATIENT IS TOLERATING WELL, AND THERE ARE NO SIGNS OF RESPIRATORY DISTRESS. PATIENT HAS RIJ INTACT, LEVOPHED INFUSING AT 6 MCG/KG/MIN. SKIN IS PINK IN COLOR, RASH LIKE, THROUGHOUT BODY.PACK WORKER SUPERVISOR IN PLACE, NSR. ABD IS ROUND AND SOFT, RUSSELL IS INTACT AND DRAINING FAIR AMOUNT OF YELLOW URINE. PATIENT HAD A BM PER NIGHT NURSE. BLE ARE RED, DARKEN DISCOLORATION, DRESSING IS APPLIED AND INTACT. TRACE EDEMA IS NOTED THROUGHOUT, BLE, AND BUE. PERINEAL AREA REDDENING IS NOTED. OPTIFOAM APPLIED. HEELS ARE OFFLOADED WITH PILLOS, FLEX BOOTS ARE ALSO APPLIED, PATIENT STABLE, CALL LIGHT WITHIN REACH, WILL CONTINUE TO MONITOR.
--- NOTE | 2018-06-12 09:00 | NUR ---
ASSISTED PATIENT WITH BREAKFAST. NO PROBLEMS SWALLOWING, PATIENT STABLE, WILL CONTINUE TO MONITOR.
--- NOTE | 2018-06-12 10:25 | NUR ---
DR REED AT BEDSIDE TO CHANGE DRESSING TO BLE. PATIENT TOLERATED WITH NO S/S OF DISTRESS NOTED.
--- NOTE | 2018-06-12 10:44 | NUR ---
LOWERED LEVOPHED TO 4 MCG/KG/MIN. PATIENTS BP:125/82 MAP:100 PATIENT STABLE, WILL CONTINUE TO MONITOR.
--- NOTE | 2018-06-12 11:04 | NUR ---
[facility]. [facility] 2.Recommend Glucerna BID d/t poor appetite/PO
--- NOTE | 2018-06-12 11:04 | NUR ---
Follow-up Nutrition Assessment- [id number] DAHLIA LUIS FU HR Dx: BLE Cellulitis with sepsis Labs: (06/12) BG 280H, BUN 48H, CREAT 1,2H, WBC 12.3H, (06/08) A1C 8.9H Meds: D50%, Humulin, lactinex, Lasix, theregran Diet: CCHO PO intake: (06/11) 30%, (06/10) 25% average Weights: (06/09) 85 kg, (06/12) 91 kg (weight gain possibly d/t edema) Skin: Skin is pink, rashlike throughout, redness noted to sacral area, R and L heel pressure ulcers noted Asif: 13 Edema: trace throughout extremities Last BM: RDN visit(06/12): Pt was busy with other healthcare professionals. Per RN Sheela, pt does not have any N/V at this time and has a BM yesterday. Pt's appetite is improving and she ate about 50% of breakfast this morning. Chris BID has been ordered to support wound healing. Discussed recommendations with RN. Estimated Nutritional Needs Based on ideal body weight 55 kg Energy:3124-1199 kcal/d (30-35 kcal/kg- increased d/t wounds) Protein:55-66 g/d (1-1.2 g/kg)- wounds and preservation of lean body mass Fluid: 6930-1462 ml/d (1 ml/kcal-fluid balance) or per doctor Nutrition Diagnosis 1. Inadequate oral intake related to poor appetite as evidenced by documented PO < 25%. (Improving) 2. Increased nutrient needs related to increased metabolic demands as evidenced by multiple wounds and pressure injuries. (ongoing) Intervention 1. Continue CCHO diet. 2.Recommend Glucerna BID d/t poor appetite/PO Monitor/Evaluate Previous goal: cont CCHO diet, Chris BID (met) Goal: PO intake at least 75% of estimated needs Monitor: PO intake, Labs, GI function F/U in 3-5 days as moderate risk 06/15-06/17
--- NOTE | 2018-06-12 11:25 | NUR ---
PATIENTS BP: 120/61 MAP: 81, LOWERED LEVOPHED TO 2 MCG/KG/MIN. PATIENT STABLE WILL CONTINUE TO MONIOR. PATIENT ALSO REPOSITIONED.
--- NOTE | 2018-06-12 12:33 | NUR ---
DR BARROW AT BEDSIDE ASSESSING PATIENT. ALL UPDATES PROVIDED. NO FURTHER ORDERS AT THIS TIME.
--- NOTE | 2018-06-12 14:51 | NUR ---
PATIENTS BP: 116/56 MAP:81, LOWERED LEVO TO 1 MCG/KG/MIN. PT STABLE, WILL CONTINUE TO MONIOR.
--- NOTE | 2018-06-12 14:52 | NUR ---
PATIENT HAD ASYMPTOMATIC EPISODE OF BRADYCARDIA WITH HR 47. DR IESHA VASQUEZ GATED AND MADE AWARE.
--- NOTE | 2018-06-12 16:34 | NUR ---
PATIENT PROVIDED WITH ORAL CARE.
--- NOTE | 2018-06-12 18:10 | NUR ---
ASSISTED PATIENT WITH DINNER. INCREASED LEVOPHED TO 3 MCG/KG/MIN. PATIENTS BP: 84/49 MAP:60. WILL CONTINUE TO MONITOR.
--- NOTE | 2018-06-12 19:14 | NUR ---
RECEIVED REPORT FROM RUBIO ROBERTS. WILL RESUME CARE.
--- NOTE | 2018-06-12 19:15 | NUR ---
RECEIVED PT A&OX4. ABLE TO FOLLOW COMMANDS. RESPONDS TO VERBAL, TACTILE, AND PAINFUL STIMULUS. PUPILS 3MM IN SIZE AND BRISK B/E. NO SECRETIONS NOTED FROM EENT. TRACHEA MIDLINE. ON HIGH FLOW OXYGEN @ 60% FIO2 AND 25 LPM. BREATHING E/U. SYMMETRICAL CHEST WALL EXPANSION. NO SIGNS OF RESP DISTRESS. NO CP STATED. SKIN IS WARM AND MOIST, PINK/PALE IN COLOR. CAP REFILL <3 SEC TO BUE AND BLE. MOD PULSES TO BUE, WEAK TO BLE. TRACE EDEMA ALL THROUGHOUT BODY. RIJ INTACT, PORTS PATENT, DRESSING CDI. LEVOPHED INFUSING @ 3MCG/MIN. GENERALIZED SKIN RASH. BLE REDDENED WOUNDS. SWATHI/BUTTOCKS REDNESS WITH OPTIFOAM IN PLACE. F/C INTACT, DRAINING VIA GRAVITY, URINE IS YELLOW IN COLOR. FAIR OUTPUT NOTED. X3 SIDE RAILS UP, BED IN LOWEST POSITION, CALL LIGHT WITHIN REACH.
--- NOTE | 2018-06-12 19:21 | NUR ---
REPORT GIVEN TO ARMANDO ELLIS. ALL QUESTIONS ANSWERED.
--- NOTE | 2018-06-12 22:04 | NUR ---
ANDRES MOLINA AT BEDSIDE ASSESSING PT. CHANGED FIO2 TO 65% AND LPM TO 30 DUE TO PT'S O2 SATURATION IN THE LOW 90'S. WILL CONTINUE TO MONITOR.
--- NOTE | 2018-06-12 23:00 | NUR ---
LEVOPHED TITRATED TO 2 MCG/KG/MIN TO ACHIEVE MAP >65. PT BP = 125/59 (87).
--- NOTE | 2018-06-13 02:50 | NUR ---
TITRATED LEVOPHED TO 1 MCG/KG/MIN TO ACHIEVE MAP >65. CURRENT BP = 105/50 (77).
[2018-06-13 03:00] VITALS: BP 104/51
--- NOTE | 2018-06-13 03:50 | NUR ---
ANDRES MOLINA AT BEDSIDE. TITRATED HIGH FLOW FIO2 TO 55% AND LPM TO 25 LPM. PT TOLERATING WELL. O2 SAT OF 97%. WILL CONTINUE TO MONITOR.
[2018-06-13 05:35] LABS: BASOPHIL % 1.1 % (0-2); PLATELET COUNT 163 x10^3mcL (130-400); RED CELL DISTRIBUTION WIDTH 14.5 % (11.5-14.5)
--- NOTE | 2018-06-13 05:45 | NUR ---
ANDRES MOLINA AT BEDSIDE ASSESSING PT. TITRATED FIO2 TO 45% AND LPM TO 25. O2 SAT OF 97%. WILL CONTINUE TO MONITOR.
--- NOTE | 2018-06-13 07:05 | NUR ---
GIVEN REPORT TO RUBIO ROBERTS. UPDATES PROVIDED. ALL QUESTIONS ADDRESSED.
[2018-06-13 07:09] LABS: CALCIUM 8.1 mg/dL (8.5-10.1); CARBON DIOXIDE 31.6 mmol/L (21-32); CHLORIDE SERUM 98 mmol/L (98-107); CREATININE SERUM 1.2 mg/dL (0.6-1.0); GLUCOSE SERUM 240 mg/dL (74-106); MAGNESIUM 1.8 mg/dL (1.8-2.4); PHOSPHOROUS 2.9 mg/dL (2.5-4.9); POTASSIUM SERUM 3.4 mmol/L (3.5-5.1); SODIUM SERUM 138 mmol/L (136-145)
--- NOTE | 2018-06-13 07:21 | NUR ---
REPORT GIVEN BY ARMANDO ELLIS. ALL QUESTIONS ANSWERED.
[2018-06-13 07:58] VITALS: BP 126/65
--- NOTE | 2018-06-13 09:14 | NUR ---
LEVOPHED OFF AT THIS TIME, PATIENTS BP: 115/58 MAP: 82, WILL CONTINUE TO MONITOR.
--- NOTE | 2018-06-13 10:57 | NUR ---
DR. PALMA, RESIDENTS, REPAIRER KILN CAR AND PRIMARY RN AT BEDSIDE FOR MORNING ROUNDS. PLAN OF CARE DISCUSSED. WILL CONT TO MONITOR.
[2018-06-13 12:29] VITALS: BP 104/49
--- NOTE | 2018-06-13 14:59 | NUR ---
RESTARTED LEVOPHED AT 0.5 MCG/KG/MIN. PATIENTS BP: 87/47 MAP: 57. WILL CONTINUE TO MONITOR.
[2018-06-13 16:00] VITALS: BP 107/42
--- NOTE | 2018-06-13 16:56 | NUR ---
DR MCALLISTER AT BEDSIDE, ALL UPDATES PROVIDED. DR MCALLISTER DISCUSSING WITH PATIENT AND FAMILY USE OF INCENTITIVE SPIROMETER AND ALSO BETTER HEALTH ROUTES, IN ORDER TO BETTER ENHANCE PATIENTS WELL BEING AND GETTING BETTER. PATIENT STATES THAT THEY UNDERSTAND AND WILL TRY.
--- NOTE | 2018-06-13 19:13 | NUR ---
REPORT GIVEN TO ARMANDO COLE, ALL QUESTIONS ANSWERED.
--- NOTE | 2018-06-13 19:13 | NUR ---
REPORT GIVE TO ARMANDO COLE. ALL QUESTIONS ANSWERED.
--- NOTE | 2018-06-13 19:13 | NUR ---
RECEIVED REPORT FROM RUBIO ROBERTS. ASSUMING ALL CARE
[2018-06-13 19:30] VITALS: BP 96/54
--- NOTE | 2018-06-13 19:30 | NUR ---
RECEIVED PT LAYING IN BED. PT IS A/OX4. SPEECH IS CLEAR. ABLE TO MAKE NEEDS KNOWN. GCS=15. PERRLA NOTED BILAT. ABLE TO FOLLOW COMMANDS. EENT FREE OF DISCHARGE. ORAL MUCOSA PINK AND MOIST. RIJ CVC IN PLACE WITH DRESSING CDI. BREATHING IS E/U ON HIGH FLOW, 25 LPM, 45% FIO2. DIMINISHED LUNG SOUNDS NOTED BILAT. DENIES ANY SOB. SYMMETRICAL CHEST EXPANSION NOTED. S1/S2 HEART SOUNDS AUSCULTATED. CHEST WALL EQUAL AND SYMMETRICAL. DENIES ANY CP. LEVOPHED INFUSING @ 0.5 MCG/MIN. PALPABLE PULSES X4 EXTREMITIES. SKIN IS WARM AND DRY. +2 PITTING EDEMA NOTED BLE, NONPITTING EDEMA NOTED TO BUE. PT ON BEDREST. GENERALIZED WEAKNESS NOTED. NO CONTRACTURES NOTED. PT ON CCHO DIET. DENIES ANY N/V. ABD IS SOFT, ROUND, NONTENDER TO PALPATION. BOWEL SOUNDS ACTIVE X4 QUADRANTS. NO BM NOTED. PT WITH RUSSELL INTACT/SECURED, DRAINING VIA GRAVITY WITH YELLOW COLORED URINE. RASH NOTED THROUGHOUT SKIN. BLANCHABLE REDNESS NOTED TO SACRAL AREA, OPTIFOAM IN PLACE. BLE WRAPPED IN DRESSING. PRESSURE ULCER TO HEELS BILAT, FLEX BOOTS IN PLACE. PT ASSISTED TO REPOSITION Q2H AND PRN FOR COMFORT. PT IS CALM AND COOPERATIVE. FAMILY AT BEDSIDE. BED IN LOW POSITION. CALL LIGHT IN REACH. WILL CONT TO MONITOR
--- NOTE | 2018-06-13 20:10 | NUR ---
FIO2 TITRATED TO 40% BY IRVIN MOLINA. PT'S CURRENT SATURATION 94%. WILL CONT TO MONITOR
--- NOTE | 2018-06-13 20:15 | NUR ---
NIBP 84/45, MAP 58. LEVOPHED TITRATED TO 1 MCG/MIN
--- NOTE | 2018-06-13 20:54 | NUR ---
DR. PALMER AT BEDSIDE. UPDATES PROVIDED. NO NEW ORDERS
--- NOTE | 2018-06-13 22:45 | NUR ---
NIBP 113/53, MAP 88. LEVOPHED TURNED OFF AT THIS TIME
[2018-06-13 23:10] VITALS: BP 93/49
--- NOTE | 2018-06-13 23:49 | NUR ---
RT AT BEDSIDE FOR BREATHING TREATMENT
--- NOTE | 2018-06-14 | NUR ---
IRVIN MOLINA AT BEDSIDE. FIO TITRATED TO 30%, 15 LPM. PT'S CURRENT SATURATION 94%. WILL CONT TO MONITOR
--- NOTE | 2018-06-14 00:15 | NUR ---
NIBP 78/42, MAP 56. LEVOPHED RESUMED @ 1 MCG/MIN
--- NOTE | 2018-06-14 00:19 | NUR ---
PT'S SATURATION 86%. IRVIN RT MADE AWARE
--- NOTE | 2018-06-14 00:30 | NUR ---
NIBP 87/42, MAP 58. LEVOPHED TITRATED TO 1.5 MCG/MIN
--- NOTE | 2018-06-14 00:36 | NUR ---
FIO2 TITRATED TO 45%, 25 LPM BY IRVIN MOLINA. PT'S CURRENT SATURATION 93%. WILL CONT TO MONITOR
--- NOTE | 2018-06-14 02:15 | NUR ---
NIBP 84/42, MAP 58. LEVOPHED TITRATED TO 2 MCG/MIN
[2018-06-14 03:00] VITALS: BP 98/49
--- NOTE | 2018-06-14 04:30 | NUR ---
NIBP 124/64, MAP 93. LEVOPHED TITRATED TO 1 MCG/MIN
--- NOTE | 2018-06-14 04:38 | NUR ---
GANG BOSS AT BEDSIDE FOR AM LAB DRAW
[2018-06-14 05:27] LABS: CALCIUM 8.1 mg/dL (8.5-10.1); CARBON DIOXIDE 32.1 mmol/L (21-32); CHLORIDE SERUM 96 mmol/L (98-107); CREATININE SERUM 1.3 mg/dL (0.6-1.0); GLUCOSE SERUM 209 mg/dL (74-106); POTASSIUM SERUM 3.1 mmol/L (3.5-5.1); SODIUM SERUM 137 mmol/L (136-145)
--- NOTE | 2018-06-14 06:00 | NUR ---
NIBP 85/44, MAP 59. LEVOPHED TITRATED TO 1.5 MCG/MIN
--- NOTE | 2018-06-14 06:17 | NUR ---
DR. MANNING AT BEDSIDE FOR MSE. UPDATED ON PT'S STATUS
[2018-06-14 06:35] LABS: MAGNESIUM 1.6 mg/dL (1.8-2.4); PHOSPHOROUS 2.7 mg/dL (2.5-4.9)
[2018-06-14 06:57] LABS: BASOPHIL % 0.3 % (0-2); PLATELET COUNT 154 x10^3mcL (130-400); RED CELL DISTRIBUTION WIDTH 14.7 % (11.5-14.5)
--- NOTE | 2018-06-14 07:15 | NUR ---
REPORT GIVEN TO LEFTY ROBERTS. ENDORSING ALL CARE
--- NOTE | 2018-06-14 07:45 | NUR ---
RECIEVED PT. AWAKE,ALERT AND ORIENTED.DENIES ANY PAIN AT THIS TIME,NO ACUTE RESP. DISTRESS NOTED. CONT. ON HIGH FLOW 25 LPM FI02 45% LUNG SOUND DIMINISHED CONT. IV LEVOPHED AT 1.5 INFUSING TO RT. IJ.HAS GEN. SKIN RASHES ,REDNESS BLE DRESSING CDI. HAS BM MOD. AMT OF SOFT BROW STOOLS. KEEP CLEAN AND DRY.TURN W/ ASSIST .W/ 2 NURSES TRINA. LOWER EXTR.+2 EDEMA. REQUIRES. MOD. ASSIST. W/ ADL NEEDS.CALL LIGHT W/ IN REACH. WILL CONT. PLAN OF CARE.
[2018-06-14 07:48] VITALS: Ht 162.6 cm; Wt 96.4 kg
[2018-06-14 08:00] VITALS: BP 92/51
--- NOTE | 2018-06-14 08:34 | NUR ---
DECREASED HIGHFLOW NASAL CANNULA FIO2 FROM 45% TO 40%.
--- NOTE | 2018-06-14 09:27 | NUR ---
NIBP 74/37, MAP 48. LEVOPHED DRIP TITRATED UP TO 2 MCG/MIN. ARMANDO FULLER MADE AWARE.
--- NOTE | 2018-06-14 09:33 | NUR ---
NIBP 71/44, MAP 54. LEVOPHED DRIP TITRATED UP TO 4 MCG/MIN. WILL CONTINUE TO MONITOR.
--- NOTE | 2018-06-14 09:45 | NUR ---
DR. GORE AT BEDSIDE TO ASSESS PATIENT. UPDATES PROVIDED AND POC DISCUSSED. WILL CONTINUE TO MONITOR.
--- NOTE | 2018-06-14 10:05 | NUR ---
NIBP 119/56, MAP 80. LEVOPHED DRIP TITRATED DOWN TO 3 MCG/MIN. ARMANDO FREY MADE AWARE.
--- NOTE | 2018-06-14 10:13 | NUR ---
DECREASED HIGHFLOW NASAL CANNULA FIO2 FROM 40% TO 35%.
--- NOTE | 2018-06-14 10:50 | NUR ---
PATIENT ROUNDS WITH DR. PALMA AND RESIDENTS. CHARGE NURSE AND PRIMARY NURSE AT BEDSIDE. UPDATES PROVIDED AND POC DISCUSSED.
--- NOTE | 2018-06-14 11:54 | NUR ---
NIBP 107/58, MAP 77. LEVOPHED DRIP TITRATED DOWN TO 2 MCG/MIN. ARMANDO OLEA MADE AWARE.
[2018-06-14 12:00] VITALS: BP 103/66
--- NOTE | 2018-06-14 12:17 | NUR ---
DECREASED FIO2 TO 30% ON HIGHFLOW NASAL CANNULA.
--- NOTE | 2018-06-14 12:21 | NUR ---
PT. AWAKE,ALERT DENIES ANY PAIN AT THIS TIME. CONT. ON HIGH FLOW 25LPM FI02 35% PRANAV. WELL NO ACUTE RESP. DISTRESS NOTED.CALL LIGHT W/ IN REACHJ. FEED PT. FOR LUNCH ATE 60%. CONT. W/ R.T PROTOCOL.,WILL CONT. TO MONITOR PT.
[2018-06-14 16:00] VITALS: BP 92/52
--- NOTE | 2018-06-14 16:17 | NUR ---
DECREASED FLOW TO 20 L/MIN ON HIGHFLOW NASAL CANNULA.
--- NOTE | 2018-06-14 16:30 | NUR ---
MARYLIN OLVERA HERE AND SEEN THE PT. AWARE OF PT. CONDITION,PT. APPEARS RESTING IN BED DENIES ANY PAIN NO ACUTE DISTRESS NOTED.
--- NOTE | 2018-06-14 17:48 | NUR ---
DECREASED FLOW ON HIGHFLOW NASAL CANNULA TO 15 L/MIN.
[2018-06-14 19:15] VITALS: BP 99/67
--- NOTE | 2018-06-14 19:16 | NUR ---
RECEIVED REPORT FROM LEFTY ROBERTS. ASSUMING ALL CARE
--- NOTE | 2018-06-14 19:16 | NUR ---
GAVE REPORT TO KAT ROBERTS UPDATE GIVEN AND ALL QUESTION ANSWERED.
--- NOTE | 2018-06-14 19:20 | NUR ---
RECEIVED PT LAYING IN BED. PT IS A/OX4. SPEECH IS CLEAR. ABLE TO MAKE NEEDS KNOWN AND FOLLOW COMMANDS. GCS=15. PERRLA NOTED BILAT. EENT FREE OF DISCHARGE. ORAL MUCOSA PINK AND MOIST. RIJ CVC IN PLACE WITH DRESSING CDI. BREATHING IS E/U ON HIGH FLOW, 15 LPM, 30% FIO2. LUNGS SOUND CLEAR TO BUL AND DIMIN TO BLL. DENIES ANY SOB. SYMMETRICAL CHEST EXPANSION NOTED. S1/S2 HEART SOUNDS AUSCULTATED. CHEST WALL EQUAL AND SYMMETRICAL. DENIES ANY CP. LEVOPHED INFUSING @ 1 MCG/MIN. PALPABLE PULSES X4 EXTREMITIES. SKIN IS WARM AND DRY. +3 PITTING EDEMA NOTED BLE, NONPITTING NOTED TO BUE. CAP REFILL < 3 SECS. PT ON BEDREST. GENERALIZED WEAKNESS NOTED. NO CONTRACTURES NOTED. FLEX BOOTS IN PLACE. HEELS OFFLOADED. PT ON CCHO DIET. DENIES ANY N/V. ABD IS SOFT, ROUND, NONTENDER TO PALPATION. BOWEL SOUNDS ACTIVE X4 QUADRANTS. NO BM NOTED. PT WITH RUSSELL INTACT/SECURED, DRAINING VIA GRAVITY WITH YELLOW COLORED URINE. NO LABIAL EDEMA NOTED. RASH NOTED THROUGHOUT SKIN. BLANCHABLE REDNESS NOTED TO SACRAL AREA, OPTIFOAM IN PLACE. BLE WRAPPED IN DRESSING WITH EXUDATE NOTED. PRESSURE ULCERS NOTED TO HEELS BILAT. FLEX BOOTS IN PLACE. PT REPOSITIONED Q2H AND PRN FOR COMFORT. PT IS CALM AND COOPERATIVE. FAMILY AT BEDSIDE. BED IN LOW POSITION. CALL LIGHT IN REACH. WILL CONT TO MONITOR
[2018-06-14 23:11] VITALS: BP 97/51
--- NOTE | 2018-06-14 23:26 | NUR ---
PT IS SLEEPING, EASILY AROUSABLE. BREATHING IS E/U ON HIGH FLOW 15 LPM, 30% FIO2. LEVOPHED INFUSING @ 1 MCG/MIN. NO S/S OF ACUTE DISTRESS NOTED. BED IN LOW POSITION. CALL LIGHT IN REACH. WILL CONT TO MONITOR.
[2018-06-15] VITALS (7 sets, daily range): BP systolic 86–101; BP diastolic 47–56
--- NOTE | 2018-06-15 01:06 | NUR ---
RT AT BEDSIDE FOR BREATHING TREATMENT
--- NOTE | 2018-06-15 01:10 | NUR ---
RT AT BEDSIDE FOR BREATHING TREATMENT
--- NOTE | 2018-06-15 02:45 | NUR ---
NIBP 87/43, MAP 59. LEVOPHED TITRATED TO 2 MCG/MIN
--- NOTE | 2018-06-15 03:30 | NUR ---
NIBP 110/53, MAP 76. LEVOPHED TITRATED TO 1 MCG/MIN
--- NOTE | 2018-06-15 04:57 | NUR ---
RT REPORTED PT TAKEN OFF HI-FLOW, PLACED ON NC @ 2LPM.
[2018-06-15 05:40] LABS: BASOPHIL % 0.7 % (0-2); PLATELET COUNT 146 x10^3mcL (130-400); RED CELL DISTRIBUTION WIDTH 14.8 % (11.5-14.5)
--- NOTE | 2018-06-15 06:00 | NUR ---
NIBP 87/43, MAP 60. LEVOPHED TITRATED TO 1.5 MCG/MIN
--- NOTE | 2018-06-15 06:15 | NUR ---
NIBP 88/41, MAP 59. LEVOPHED TITRATED TO 2 MCG/MIN
--- NOTE | 2018-06-15 06:20 | NUR ---
DR. JULIAN AT BEDSIDE FOR MSE. UPDATED ON PT'S STATUS
--- NOTE | 2018-06-15 07:10 | NUR ---
REPORT GIVENT TO YVETTE ROBERTS. ALL QUESTIONS/CONCERNS ADDRESSED AT THIS TIME. ENDORSING ALL CARE
--- NOTE | 2018-06-15 07:45 | NUR ---
THE PATIENT AWAKE AND ORIENTED TO PERSON, PLACE AND TIME. PATIENT COMMUNICATED WITH CLEAR SPEECH AND MADE NEEDS KNOWN. CVC TO RIJ WITH DRESSING INTACT. CVP 11. TELE # 5 READS NORMAL SINUS RHYTHMS. PATIENT WAS ON LEVOPHED AT 2MCG/MIN TO MAINTAIN MAP >65. PATIENT WAS ON OXYGEN 2L/MIN VIA NASAL CANNULA. RUSSELL CATH TO GRAVITY DRAINING YELLOW URINE. BLE WERE WRAPPED WITH DRESSING. BOTH HEEL PROTECTORS IN PLACE. THE PATIENT WAS ON AIR MATTRESS. SIDE RAILS UP X3. BED WAS AT LOWEST POSITION. ALARM WAS ON. CONTACT ISOLATION MAINTAINED.
[2018-06-15 07:53] LABS: CALCIUM 7.9 mg/dL (8.5-10.1); CARBON DIOXIDE 31.9 mmol/L (21-32); CHLORIDE SERUM 98 mmol/L (98-107); CREATININE SERUM 1.6 mg/dL (0.6-1.0); GLUCOSE SERUM 187 mg/dL (74-106); MAGNESIUM 1.7 mg/dL (1.8-2.4); PHOSPHOROUS 2.9 mg/dL (2.5-4.9); POTASSIUM SERUM 3.5 mmol/L (3.5-5.1); SODIUM SERUM 138 mmol/L (136-145)
--- NOTE | 2018-06-15 10:03 | NUR ---
PT AT BEDSIDE FOR PT TREATMENT.
--- NOTE | 2018-06-15 11:40 | NUR ---
DR. BARROW IN TO SEE THE PATIENT; UPDATE WAS PROVIDED TO THE DOCTOR.
--- NOTE | 2018-06-15 14:32 | NUR ---
THE BP 120/57 (85); LEVOPHED WAS TITRATED FROM 2MCG/MIN DOWN TO 1MCG/MIN. THE PATIENT C/O ACHING TO LOWER ABDOMEN. DR. JULIAN WAS INFORMED OF THAT AND WAS AT BEDSIDE EXAMING THE PATIENT.
[2018-06-15] MEDS ORDERED: PROA PO (17:01)
[2018-06-15] MEDS ORDERED: NEU100 PO (17:02)
[2018-06-15] MEDS ORDERED: VANCOMYCIN PER PHARM MC (17:03)
[2018-06-15] MEDS ORDERED: [UNRECOGNIZED DRUG - CODE] IV (17:03)
[2018-06-15] MEDS ORDERED: HEP5I SC (17:05)
[2018-06-15] MEDS ORDERED: IPRATROPIUM BROM3 M2 INH (17:07)
[2018-06-15] MEDS ORDERED: IPRATROPIUM BROM3 M2 HHN (17:07)
[2018-06-15] MEDS ORDERED: BUDESONIDE0.5 MG/2 M IH (17:07)
[2018-06-15] MEDS ORDERED: MUCINEX600 MG PO (17:07)
[2018-06-15] MEDS ORDERED: HUMULIN R100 U/1 M1 SC (17:08)
[2018-06-15] MEDS ORDERED: LANTI SQ (17:08)
[2018-06-15] MEDS ORDERED: [UNRECOGNIZED DRUG - OTHER] IV (17:10)
[2018-06-15] MEDS ORDERED: MAXIPIME1 G1 IV (17:11)
--- NOTE | 2018-06-15 17:28 | NUR ---
THE PATIENT WAS CLEANSED, DRESSING AT CENTRAL LINE WAS CHANGED. RUSSELL CATH CARE WAS PROVIDED TO THE PATIENT. ALL IV LINES WERE CHANGED FOR THE PATIENT.
--- NOTE | 2018-06-15 18:30 | NUR ---
THE PATIENT'S SON, CHARITY LUIS CALLED IN AND WAS INFORMED THAT THE PATIENT WILL BE TRANSFERRED TO [facility].
--- NOTE | 2018-06-15 18:42 | NUR ---
THE PATIENT WAS RESTING IN BED WITHOUT DISTRESS NOTED. THE PATIENT WAS AWARE THAT SHE WILL BE TRANSFERRED TO [facility].
--- NOTE | 2018-06-15 19:09 | NUR ---
REPORT WAS GIVEN EJSUS CHAVEZ RN. CONCERNS WERE ADDRESSED. [facility] WILL COMPLETE THE TRANSFER PROCESS.
--- NOTE | 2018-06-15 19:15 | NUR ---
RECIEVED REPORT FROM [facility]. RESUMED CARE OF PT. SEE SHIFT ASSESSMENT 2000 FOR PT ASSESSMENT.
--- NOTE | 2018-06-15 21:38 | NUR ---
[facility] TRANSFER TEAM NOTIFIED OF BEING ABLE TO TRANSPORT @ 2300 NOW THEY ARE WITH A PATIENT. NOTIFIED FAMILY @ BEDSIDE.
--- NOTE | 2018-06-15 22:00 | NUR ---
ATTEMPTED TO TAKE DISCHARGE PICTURES OF WOUNDS BUT UPON UNWRAPPING EVEN W/ USE OF SALINE TO DAMPEN WRAPS UNABLE TO TAKE WRAPS OFF W/O DISTURBING WOUND HEALING PROCESS AND SCABS DETRATCHING FROM WOUND. [facility] NOTIFIED.
--- NOTE | 2018-06-15 23:01 | NUR ---
TITRATED LEVO FROM 1MCG/MIN TO OFF FOR BP WNL. MAP LOW 70S CONSTENTLY FOR 2 HOURS. WILL CONT TO MONITOR.
--- NOTE | 2018-06-15 23:30 | NUR ---
REPORT GIVEN TO [facility]? @ [facility]. ALL CONCERNS ADDRESSED.
--- NOTE | 2018-06-15 23:57 | NUR ---
REPORT GIVEN TO [facility]. ALL CONCERNS ADDRESSED. CARE TRANSFERED. [facility] HERE FOR TRANSFER PICKUP. NO ACUTE CHANGES TO PATIENT. SEE SHIFT ASSESSMENT. VS WNL. LEVOPHED TITRATED OFF AND GIVEN TO TRANSFER TEAM IN CASE OF NEED FOR USE.
== END 2018-06-16 00:04 | DRG 871 ==
LOC: ED 18:09 → IC 23:08
PROVIDERS: Emergency Medicine; Internal Medicine; Internal Medicine Nephrology; ADMIT General Practice
DX: A41.9 Sepsis, unspecified organism (principal); N17.0 Acute kidney failure with tubular necrosis; R65.21 Severe sepsis with septic shock; J96.01 Acute respiratory failure with hypoxia; J18.9 Pneumonia, unspecified organism; L03.116 Cellulitis of left lower limb; L03.115 Cellulitis of right lower limb; N39.0 Urinary tract infection, site not specified; E87.2 Acidosis; E87.1 Hypo-osmolality and hyponatremia; E11.65 Type 2 diabetes mellitus with hyperglycemia; E11.42 Type 2 diabetes mellitus with diabetic polyneuropathy; E86.0 Dehydration; I87.2 Venous insufficiency (chronic) (peripheral); L89.620 Pressure ulcer of left heel, unstageable; L89.610 Pressure ulcer of right heel, unstageable; I10 Essential (primary) hypertension; E83.51 Hypocalcemia; E03.9 Hypothyroidism, unspecified; E78.00 Pure hypercholesterolemia, unspecified; B35.1 Tinea unguium; E87.5 Hyperkalemia; L30.4 Erythema intertrigo; Z68.32 Body mass index [BMI] 32.0-32.9, adult; Z85.3 Personal history of malignant neoplasm of breast; Z92.3 Personal history of irradiation; Z87.891 Personal history of nicotine dependence; Z79.4 Long term (current) use of insulin; E11.51 Type 2 diabetes mellitus with diabetic peripheral angiopathy without gangrene
CPT/HCPCS: 82962; 84439; 94150; J0692; J0696; J1200; J1644; J1720; J1815; J1940; J2405; J2930; J3010; J3370; J3475; J3480; J3490; J7030; J7040; J7050; J7620; J7626; P9047; Q0092

== ENCOUNTER 2018-06-26 15:56 | Inpatient (IN) | payer OTHER, MEDICARE ==
[~2018-06-26] VITALS: Ht 165.1 cm; Wt 105.0 kg
[~2018-06-26 15:56] MED LIST changes: +BUDESONIDE0.5 MG/2 M IH; +HEP5I SC; +HUMULIN R100 U/1 M1 SC; +IPRATROPIUM BROM3 M2 HHN; +IPRATROPIUM BROM3 M2 INH; +LANTI SQ; +MAXIPIME1 G1 IV; +MUCINEX600 MG PO; +NEU100 PO; +PROA PO; +VANCOMYCIN PER PHARM MC; +[UNRECOGNIZED DRUG - CODE] IV; +[UNRECOGNIZED DRUG - OTHER] IV
[2018-06-26 18:13] LABS: PLATELET COUNT 118 x10^3mcL (130-400); RED CELL DISTRIBUTION WIDTH 16.2 % (11.5-14.5)
[2018-06-26 18:20] LABS: CALCIUM 8.3 mg/dL (8.5-10.1); CARBON DIOXIDE 32.1 mmol/L (21-32); CHLORIDE SERUM 106 mmol/L (98-107); CREATININE SERUM 0.5 mg/dL (0.6-1.0); GLUCOSE SERUM 172 mg/dL (74-106)
[2018-06-26 18:25] LABS: ALKALINE PHOSPHATASE 59 U/L (46-116); ALT/SGPT 42 U/L (14-59); BILIRUBIN TOTAL 0.7 mg/dL (0.20-1.00); TOTAL PROTEIN, SERUM 6.4 g/dL (6.4-8.2)
[2018-06-26 18:27] LABS: ALBUMIN 2.6 g/dL (3.4-5.0)
[2018-06-26 18:39] LABS: SODIUM SERUM 146 mmol/L (136-145)
[2018-06-26 18:40] LABS: POTASSIUM SERUM 5.2 mmol/L (3.5-5.1)
[2018-06-26 18:42] LABS: AST/SGOT 68 U/L (15-37)
[2018-06-26 21:28] LABS: UA SPECIFIC GRAVITY 1.025 (1.005-1.035); microscopic required? YES; urine erythrocyte 3+ (NEGATIVE)
[2018-06-26 22:17] VITALS: BP 129/90
[2018-06-26 22:40] VITALS: BP 129/90; BP 99/53
[2018-06-26 23:45] VITALS: BP 110/57
[2018-06-27] VITALS (17 sets, daily range): BP systolic 82–133; BP diastolic 35–74
[2018-06-27 05:05] LABS: BASOPHIL % 0.1 % (0-2); PLATELET COUNT 230 x10^3mcL (130-400)
[2018-06-27 05:06] LABS: RED CELL DISTRIBUTION WIDTH 16.8 % (11.5-14.5)
[2018-06-27 05:16] LABS: CALCIUM 7.7 mg/dL (8.5-10.1); CARBON DIOXIDE 26.5 mmol/L (21-32); CHLORIDE SERUM 108 mmol/L (98-107); CREATININE SERUM 0.8 mg/dL (0.6-1.0); GLUCOSE SERUM 268 mg/dL (74-106); POTASSIUM SERUM 3.6 mmol/L (3.5-5.1); SODIUM SERUM 146 mmol/L (136-145)
[2018-06-27 05:23] LABS: MAGNESIUM 1.6 mg/dL (1.8-2.4); PHOSPHOROUS 2.6 mg/dL (2.5-4.9)
[2018-06-27 05:27] LABS: CHOLESTEROL/HDL RATIO 2.4
[2018-06-27 12:05] LABS: PLATELET COUNT 251 x10^3mcL (130-400)
[2018-06-27 12:47] LABS: BASOPHIL % 0 % (0-2); RED CELL DISTRIBUTION WIDTH 16.8 % (11.5-14.5)
[2018-06-28] VITALS (19 sets, daily range): BP systolic 89–129; BP diastolic 44–92
[2018-06-28 05:43] LABS: BASOPHIL % 0.2 % (0-2); PLATELET COUNT 245 x10^3mcL (130-400)
[2018-06-28 05:47] LABS: RED CELL DISTRIBUTION WIDTH 16.5 % (11.5-14.5)
[2018-06-28 05:54] LABS: CALCIUM 7.5 mg/dL (8.5-10.1); CARBON DIOXIDE 24.1 mmol/L (21-32); CHLORIDE SERUM 109 mmol/L (98-107); CREATININE SERUM 0.9 mg/dL (0.6-1.0); GLUCOSE SERUM 226 mg/dL (74-106); MAGNESIUM 1.7 mg/dL (1.8-2.4); PHOSPHOROUS 2.5 mg/dL (2.5-4.9); POTASSIUM SERUM 3.3 mmol/L (3.5-5.1); SODIUM SERUM 146 mmol/L (136-145)
[2018-06-29] VITALS (20 sets, daily range): BP systolic 78–120; BP diastolic 43–74; Ht 165.1 cm; Wt 105.0 kg
[2018-06-29 05:24] LABS: BASOPHIL % 0.5 % (0-2); PLATELET COUNT 227 x10^3mcL (130-400)
[2018-06-29 05:37] LABS: RED CELL DISTRIBUTION WIDTH 16.6 % (11.5-14.5)
[2018-06-29 05:51] LABS: CALCIUM 7.7 mg/dL (8.5-10.1); CARBON DIOXIDE 25.6 mmol/L (21-32); CHLORIDE SERUM 110 mmol/L (98-107); GLUCOSE SERUM 338 mg/dL (74-106); MAGNESIUM 1.7 mg/dL (1.8-2.4); PHOSPHOROUS 2.5 mg/dL (2.5-4.9); POTASSIUM SERUM 3.7 mmol/L (3.5-5.1); SODIUM SERUM 146 mmol/L (136-145)
[2018-06-30] VITALS (17 sets, daily range): BP systolic 90–142; BP diastolic 48–76
[2018-06-30 05:52] LABS: BASOPHIL % 0.2 % (0-2); PLATELET COUNT 216 x10^3mcL (130-400)
[2018-06-30 06:10] LABS: CALCIUM 7.6 mg/dL (8.5-10.1); CHLORIDE SERUM 111 mmol/L (98-107); CREATININE SERUM 0.9 mg/dL (0.6-1.0); GLUCOSE SERUM 342 mg/dL (74-106); MAGNESIUM 1.6 mg/dL (1.8-2.4); SODIUM SERUM 139 mmol/L (136-145)
[2018-06-30 16:11] LABS: PLATELET COUNT 238 x10^3mcL (130-400)
[2018-06-30 16:13] LABS: BASOPHIL % 0 % (0-2); RED CELL DISTRIBUTION WIDTH 17.6 % (11.5-14.5)
[2018-07-01] VITALS (18 sets, daily range): BP systolic 98–144; BP diastolic 50–83
[2018-07-01 05:12] LABS: CALCIUM 8.6 mg/dL (8.5-10.1); CARBON DIOXIDE 27.6 mmol/L (21-32); CHLORIDE SERUM 115 mmol/L (98-107); GLUCOSE SERUM 330 mg/dL (74-106); PHOSPHOROUS 2.5 mg/dL (2.5-4.9); POTASSIUM SERUM 3.9 mmol/L (3.5-5.1); SODIUM SERUM 150 mmol/L (136-145)
[2018-07-01 06:06] LABS: BASOPHIL % 0 % (0-2); PLATELET COUNT 224 x10^3mcL (130-400); RED CELL DISTRIBUTION WIDTH 17.3 % (11.5-14.5)
[2018-07-02] VITALS (17 sets, daily range): BP systolic 106–161; BP diastolic 32–83
[2018-07-02 04:39] LABS: BASOPHIL % 1.3 % (0-2); PLATELET COUNT 231 x10^3mcL (130-400)
[2018-07-02 04:45] LABS: RED CELL DISTRIBUTION WIDTH 16.1 % (11.5-14.5)
[2018-07-02 04:49] LABS: CARBON DIOXIDE 29.5 mmol/L (21-32); CHLORIDE SERUM 116 mmol/L (98-107); CREATININE SERUM 1.1 mg/dL (0.6-1.0); GLUCOSE SERUM 220 mg/dL (74-106); MAGNESIUM 1.8 mg/dL (1.8-2.4); PHOSPHOROUS 2.8 mg/dL (2.5-4.9); POTASSIUM SERUM 3.6 mmol/L (3.5-5.1); SODIUM SERUM 155 mmol/L (136-145)
[2018-07-03] VITALS (20 sets, daily range): BP systolic 102–165; BP diastolic 53–84
[2018-07-03 05:32] LABS: PLATELET COUNT 225 x10^3mcL (130-400)
[2018-07-03 05:35] LABS: BASOPHIL % 0 % (0-2); RED CELL DISTRIBUTION WIDTH 16.9 % (11.5-14.5)
[2018-07-03 05:41] LABS: CALCIUM 8.2 mg/dL (8.5-10.1); CARBON DIOXIDE 28.6 mmol/L (21-32); CHLORIDE SERUM 111 mmol/L (98-107); CREATININE SERUM 1.1 mg/dL (0.6-1.0); GLUCOSE SERUM 261 mg/dL (74-106); MAGNESIUM 1.9 mg/dL (1.8-2.4); PHOSPHOROUS 3.1 mg/dL (2.5-4.9); POTASSIUM SERUM 3.3 mmol/L (3.5-5.1); SODIUM SERUM 148 mmol/L (136-145)
[2018-07-04] VITALS (18 sets, daily range): BP systolic 94–145; BP diastolic 43–86
[2018-07-04 05:08] LABS: CALCIUM 8.4 mg/dL (8.5-10.1); CARBON DIOXIDE 26.5 mmol/L (21-32); CHLORIDE SERUM 110 mmol/L (98-107); CREATININE SERUM 1.3 mg/dL (0.6-1.0); GLUCOSE SERUM 324 mg/dL (74-106); MAGNESIUM 1.9 mg/dL (1.8-2.4); PHOSPHOROUS 3.4 mg/dL (2.5-4.9); POTASSIUM SERUM 3.9 mmol/L (3.5-5.1); SODIUM SERUM 144 mmol/L (136-145)
[2018-07-04 05:14] LABS: BASOPHIL % 0.2 % (0-2); PLATELET COUNT 223 x10^3mcL (130-400)
[2018-07-04 05:26] LABS: RED CELL DISTRIBUTION WIDTH 17.1 % (11.5-14.5)
[2018-07-05] VITALS (19 sets, daily range): BP systolic 109–167; BP diastolic 50–100
[2018-07-05 05:26] LABS: CALCIUM 8.7 mg/dL (8.5-10.1); CARBON DIOXIDE 24.2 mmol/L (21-32); CHLORIDE SERUM 106 mmol/L (98-107); CREATININE SERUM 1.5 mg/dL (0.6-1.0); GLUCOSE SERUM 267 mg/dL (74-106); MAGNESIUM 1.9 mg/dL (1.8-2.4); PHOSPHOROUS 3.7 mg/dL (2.5-4.9); SODIUM SERUM 139 mmol/L (136-145)
[2018-07-05 05:41] LABS: BASOPHIL % 0.1 % (0-2); PLATELET COUNT 202 x10^3mcL (130-400)
[2018-07-05 05:42] LABS: RED CELL DISTRIBUTION WIDTH 17.1 % (11.5-14.5)
[2018-07-06] VITALS (18 sets, daily range): BP systolic 108–155; BP diastolic 54–88
[2018-07-06 05:21] LABS: BASOPHIL % 0.2 % (0-2); PLATELET COUNT 170 x10^3mcL (130-400)
[2018-07-06 05:27] LABS: CALCIUM 8.6 mg/dL (8.5-10.1); CHLORIDE SERUM 106 mmol/L (98-107); CREATININE SERUM 1.7 mg/dL (0.6-1.0); GLUCOSE SERUM 223 mg/dL (74-106); POTASSIUM SERUM 4.1 mmol/L (3.5-5.1); SODIUM SERUM 140 mmol/L (136-145)
[2018-07-07] VITALS (18 sets, daily range): BP systolic 108–172; BP diastolic 50–110
[2018-07-07 05:25] LABS: CALCIUM 8.4 mg/dL (8.5-10.1); CARBON DIOXIDE 22.6 mmol/L (21-32); CHLORIDE SERUM 103 mmol/L (98-107); CREATININE SERUM 2.1 mg/dL (0.6-1.0); GLUCOSE SERUM 289 mg/dL (74-106); MAGNESIUM 1.9 mg/dL (1.8-2.4); PHOSPHOROUS 4.3 mg/dL (2.5-4.9); POTASSIUM SERUM 4.3 mmol/L (3.5-5.1); SODIUM SERUM 137 mmol/L (136-145)
[2018-07-07 05:40] LABS: BASOPHIL % 0.1 % (0-2); PLATELET COUNT 158 x10^3mcL (130-400)
[2018-07-07 05:41] LABS: RED CELL DISTRIBUTION WIDTH 16.7 % (11.5-14.5)
[2018-07-08] VITALS (17 sets, daily range): BP systolic 104–149; BP diastolic 57–83
[2018-07-08 04:48] LABS: UA SPECIFIC GRAVITY 1.015 (1.005-1.035); microscopic required? YES; urine erythrocyte 3+ (NEGATIVE)
[2018-07-08 05:22] LABS: BASOPHIL % 0.5 % (0-2); PLATELET COUNT 175 x10^3mcL (130-400)
[2018-07-08 05:23] LABS: RED CELL DISTRIBUTION WIDTH 17.4 % (11.5-14.5)
[2018-07-08 05:29] LABS: CALCIUM 8.5 mg/dL (8.5-10.1); CARBON DIOXIDE 19.2 mmol/L (21-32); CHLORIDE SERUM 103 mmol/L (98-107); CREATININE SERUM 2.4 mg/dL (0.6-1.0); GLUCOSE SERUM 228 mg/dL (74-106); PHOSPHOROUS 4.6 mg/dL (2.5-4.9); POTASSIUM SERUM 4.5 mmol/L (3.5-5.1); SODIUM SERUM 135 mmol/L (136-145)
[2018-07-09] VITALS (11 sets, daily range): BP systolic 87–141; BP diastolic 39–74
[2018-07-09 05:42] LABS: PLATELET COUNT 149 x10^3mcL (130-400)
[2018-07-09 05:44] LABS: BASOPHIL % 0 % (0-2); RED CELL DISTRIBUTION WIDTH 16.7 % (11.5-14.5)
[2018-07-09 05:46] LABS: CALCIUM 8.6 mg/dL (8.5-10.1); CARBON DIOXIDE 18.9 mmol/L (21-32); CHLORIDE SERUM 100 mmol/L (98-107); GLUCOSE SERUM 275 mg/dL (74-106); MAGNESIUM 1.9 mg/dL (1.8-2.4); POTASSIUM SERUM 4.3 mmol/L (3.5-5.1); SODIUM SERUM 126 mmol/L (136-145)
== END 2018-07-10 02:37 | disposition expired | DRG 207 ==
LOC: ED 15:56 → IC 19:22
PROVIDERS: Emergency Medicine; General Practice; Internal Medicine; ADMIT Internal Medicine
PROC: 5A1955Z Respiratory Ventilation, Greater than 96 Consecutive Hours (ICD-10-PCS; principal; 2018-06-26)
PROC: 0BH17EZ Insertion of Endotracheal Airway into Trachea, Via Natural or Artificial Opening (ICD-10-PCS; 2018-06-26)
PROC: 5A2204Z Restoration of Cardiac Rhythm, Single (ICD-10-PCS; 2018-06-26)
PROC: 05HM33Z Insertion of Infusion Device into Right Internal Jugular Vein, Percutaneous Approach (ICD-10-PCS; 2018-06-26)
DX: J18.9 Pneumonia, unspecified organism (principal); J96.01 Acute respiratory failure with hypoxia; E43 Unspecified severe protein-calorie malnutrition; N17.0 Acute kidney failure with tubular necrosis; I50.33 Acute on chronic diastolic (congestive) heart failure; E87.0 Hyperosmolality and hypernatremia; I13.0 Hypertensive heart and chronic kidney disease with heart failure and stage 1 through stage 4 chronic kidney disease, or unspecified chronic kidney disease; L03.116 Cellulitis of left lower limb; L03.115 Cellulitis of right lower limb; I48.91 Unspecified atrial fibrillation; L89.151 Pressure ulcer of sacral region, stage 1; E87.5 Hyperkalemia; E83.42 Hypomagnesemia; N18.9 Chronic kidney disease, unspecified; E11.22 Type 2 diabetes mellitus with diabetic chronic kidney disease; E11.65 Type 2 diabetes mellitus with hyperglycemia; E03.9 Hypothyroidism, unspecified; R74.0 Nonspecific elevation of levels of transaminase and lactic acid dehydrogenase [LDH]; Z68.37 Body mass index [BMI] 37.0-37.9, adult; Z79.4 Long term (current) use of insulin; Z87.891 Personal history of nicotine dependence; Z85.3 Personal history of malignant neoplasm of breast; Z66 Do not resuscitate
CPT/HCPCS: 31500; 36556; 36600; 82962; 83880; 85378; 94150; A4628; J0282; J0456; J0692; J0696; J1200; J1642; J1644; J1815; J1940; J2060; J2250; J2270; J2405; J2704; J2920; J2930; J3010; J3370; J3475; J3480; J3490; J7030; J7040; J7050; J7060; J7613; J7620; J7644; P9047; Q0092